=== PATIENT | female | born 1950 | race Caucasian/White ===

== ENCOUNTER 2019-09-28 05:32 | Outpatient (CLI) | payer MEDICARE ==
[~2019-09-28] VITALS: Ht 157 cm; Wt 85.4 kg
[~2019-09-28 05:32] MED LIST: CEFU250T11; LVT.025T PO
[2019-09-28] MEDS ORDERED: LEVO25TA5 PO (13:38)
[2019-09-28] MEDS ORDERED: FAMO20TA3 PO (13:38)
[2019-09-28] MEDS ORDERED: DRON400T2 PO (13:38)
== END 2019-09-28 13:43 | disposition home or self-care (01) ==
LOC: PREOP 05:32
PROVIDERS: ATTEND Surgery
DX: Z01.818 Encounter for other preprocedural examination (principal)

== ENCOUNTER → 2019-10-11 | Outpatient (CLI) | payer MEDICARE, OTHER ==
[~2019-10-11] MED LIST changes: +DRON400T2 PO; +FAMO20TA3 PO; +LEVO25TA5 PO; +PANT40TA2 PO
--- NOTE | 2019-10-12 13:04 | Diagnostic Imaging Report ---
INDICATION: Routine screening. COMPARISON: 10/05/2018 and 10/03/2017. TECHNIQUE: 2D and 3D bilateral screening mammography was performed with CAD. FINDINGS: Both breasts remain heterogeneously dense, limiting the sensitivity of mammography. Benign calcifications are scattered throughout both breasts. The parenchymal pattern is stable. No mass or malignant appearing microcalcifications are seen. The axillae are unremarkable. IMPRESSION: No mammographic features suspicious for malignancy are identified. ACR BI-RADS Category 2: Benign findings. Result letter will be mailed to the patient. Note: At least 10% of breast cancer is not imaged by mammography. Dictated by: Dictated on workstation # [id number]
== END ==
LOC: RAD 11:07
PROVIDERS: ATTEND Family Medicine
DX: Z12.31 Encounter for screening mammogram for malignant neoplasm of breast (principal)
CPT/HCPCS: 77067

== ENCOUNTER 2020-02-08 11:32 | Outpatient (RCR) | payer MEDICARE | END 2020-05-08 | disposition home or self-care (01) | LOC: CARD 11:32 | PROVIDERS: ATTEND Internal Medicine Interventional Cardiology | DX: R06.02 Shortness of breath (principal); R00.1 Bradycardia, unspecified | CPT/HCPCS: 93306 ==

== ENCOUNTER → 2020-04-14 | Outpatient (CLI) | payer MEDICARE ==
[~2020-04-14] MED LIST changes: +CATHETER FLUSH 10 ML SYR IV PRN; +HOLD METFORMIN - RECEIVED CONTRAST 20 ML VIAL IV SCH; +IOHEXOL 350 MG/ML 100 ML (OMNIPAQUE 350) VIAL IV ONE; +NS 100 ML (IVPB) BAG IV ONE
[2020-04-14 11:09] LABS: BUN/CREATININE RATIO 20; CREATININE SERUM 0.76 MG/DL (0.60-1.30); GFR ESTIMATED > 60
--- NOTE | 2020-04-14 13:01 | Diagnostic Imaging Report ---
PROCEDURE: CT chest with contrast only. TECHNIQUE: Multiple contiguous axial images were obtained through the chest after administration of intravenous contrast. Auto Exposure Controls were utilized during the CT exam to meet ALARA standards for radiation dose reduction. DATE: April 14, 2020. COMPARISON: None. INDICATION: 69-year-old female, history of lung cancer status post surgery. FINDINGS: The patient is status post right lobectomy. There are sutures or calcifications along the right pleural margin with slight to mild right pleural thickening. There is no sizable pleural fluid. There is no gas in the right pleural space. There is a 4 mm noncalcified left upper lobe pulmonary nodule on axial image 23. There is no additional identified pulmonary nodule. There is no lung mass. There is no additional focal airspace consolidation. There is no pneumothorax. The airways are patent on the left. The trachea is unremarkable in caliber. There is no identified pulmonary embolus. The main pulmonary artery diameter is normal in caliber. There is mediastinal shift to the right relating to the pneumonectomy. There are atherosclerotic calcifications. There is no identified abnormally enlarged mediastinal, hilar, or axillary lymph node which meets CT size criteria for adenopathy. There is a low-attenuation right thyroid nodule on axial image 12 which measures 9 mm in size. The patient is status post cholecystectomy. Additional evaluation of the imaged portions of the upper abdomen is unremarkable. There are multilevel degenerative changes of the spine. There are chronic appearing right posterior rib deformities. There is no identified bone lesion concerning for metastatic disease. There is no otherwise noted acute bony abnormality. IMPRESSION: CT CHEST. 1. Status post right pneumonectomy. 2. 4 mm noncalcified nodule in the left upper lobe. Recommend comparison with prior CT imaging to assess for potential stability. If comparison imaging could not be obtained, followup CT chest in 3-6 months is recommended. Dictated by: Dictated on workstation # [id number]
== END ==
LOC: RT 10:37
PROVIDERS: ATTEND Nurse Practitioner Family
DX: C34.90 Malignant neoplasm of unspecified part of unspecified bronchus or lung (principal); J98.4 Other disorders of lung; L90.5 Scar conditions and fibrosis of skin; F17.211 Nicotine dependence, cigarettes, in remission; Z98.890 Other specified postprocedural states; Z90.2 Acquired absence of lung [part of]; Z90.49 Acquired absence of other specified parts of digestive tract
CPT/HCPCS: 36415; 71260; 82565; 84520

== ENCOUNTER → 2020-04-24 | Outpatient (CLI) | payer MEDICARE ==
[~2020-04-24] MED LIST changes: -CATHETER FLUSH 10 ML SYR IV PRN; -HOLD METFORMIN - RECEIVED CONTRAST 20 ML VIAL IV SCH; -IOHEXOL 350 MG/ML 100 ML (OMNIPAQUE 350) VIAL IV ONE; -NS 100 ML (IVPB) BAG IV ONE; +RT-ALBUTEROL SULF 2.5 MG/3 ML PRE-MIX VIAL INH ONE
[2020-04-24 10:41] LABS: ABG BASE EXCESS 3.5 MMOL/L (-2.5-2.5); ABG OXYGEN SATURATION 96 % (94-100); ABG PCO2 45 MMHG (35-45); ABG PH 7.41 (7.37-7.43); ABG PO2 82 MMHG (79-93); ABG TCO2 29.3 MMOL/L (21.0-31.0)
[2020-04-24 10:44] LABS: ALLENS TEST YES-POS; INSPIRED O2 ROOM AIR; PATIENT TEMP 36.7; VENTILATOR NO
== END ==
LOC: RT 10:10
PROVIDERS: ATTEND Nurse Practitioner Family
DX: C34.90 Malignant neoplasm of unspecified part of unspecified bronchus or lung (principal); L90.5 Scar conditions and fibrosis of skin; J98.4 Other disorders of lung; R91.8 Other nonspecific abnormal finding of lung field; F17.211 Nicotine dependence, cigarettes, in remission
CPT/HCPCS: 36600; 82805; 94060; 94726; 94729

== ENCOUNTER 2020-05-09 08:00 | Outpatient (RCR) | payer MEDICARE ==
[~2020-05-09 08:00] MED LIST changes: -RT-ALBUTEROL SULF 2.5 MG/3 ML PRE-MIX VIAL INH ONE
== END 2020-08-07 ==
LOC: CARD 08:00
PROVIDERS: ATTEND Internal Medicine Interventional Cardiology
DX: R06.02 Shortness of breath (principal)

== ENCOUNTER → 2020-07-21 | Outpatient (CLI) | payer MEDICARE ==
[~2020-07-21] MED LIST changes: +CATHETER FLUSH 10 ML SYR IV PRN; +HOLD METFORMIN - RECEIVED CONTRAST 20 ML VIAL IV SCH; +IOHEXOL 350 MG/ML 100 ML (OMNIPAQUE 350) VIAL IV ONE
[2020-07-21 09:53] LABS: CREATININE SERUM 0.72 MG/DL (0.60-1.30); GFR ESTIMATED > 60
[2020-07-21 09:54] LABS: BUN/CREATININE RATIO 28
--- NOTE | 2020-07-21 12:44 | Diagnostic Imaging Report ---
PROCEDURE: CT chest with contrast only. TECHNIQUE: Multiple contiguous axial images were obtained through the chest after administration of intravenous contrast. Auto Exposure Controls were utilized during the CT exam to meet ALARA standards for radiation dose reduction. INDICATION: Shortness of breath The previous CT chest exam of 04/14/2020 noted postsurgical changes consistent with right pneumonectomy. There was no acute abnormality identified. On this exam, the postsurgical changes are again visualized. The overall appearance of the right thorax does not seem to have changed significantly since the prior exam. The heart and mediastinum remained shifted to the right. The heart is stable in size when compared to the prior study. The aorta is not abnormally dilated and there is no sign of a dissection. There is no defect within the pulmonary arteries to indicate a pulmonary embolus either. The left lung is generally clear. The 4 mm nodule in the left upper lung seen on the prior study is again evident and no different (image 25 of 147). The 9 mm low density nodule in the right lobe of the thyroid seen previously is also unchanged. There is no mediastinal or hilar adenopathy. There is no obvious breast mass. There now appears to be a loop recorder device in the lower thorax on the left. The images through the upper abdomen failed to show any sign of an acute abnormality. The bone windows are unremarkable for a fracture or for a destructive lesion. IMPRESSION: 1. The postsurgical changes involving the right thorax seen previously are again evident and no different. There is no acute cardiopulmonary abnormality appreciated. 2. The 4 mm nodule in the left upper lung seen previously appears stable. Most likely this is a benign process. 3. The low density nodule in the right lobe of the thyroid noted on prior study is also unchanged. I suspect that this is a benign process as well but ultrasound would be recommended to better characterize this finding. 4. There has been interval insertion of a loop recorder device on the left. Dictated by: Dictated on workstation # [id number]
== END ==
LOC: RAD 09:12
PROVIDERS: ATTEND Nurse Practitioner Family
DX: J98.4 Other disorders of lung (principal); R91.8 Other nonspecific abnormal finding of lung field; R06.02 Shortness of breath; Z98.890 Other specified postprocedural states
CPT/HCPCS: 36415; 71260; 82565; 84520

== ENCOUNTER → 2020-09-20 | Outpatient (CLI) | payer MEDICARE ==
[~2020-09-20] MED LIST changes: -CATHETER FLUSH 10 ML SYR IV PRN; -HOLD METFORMIN - RECEIVED CONTRAST 20 ML VIAL IV SCH; -IOHEXOL 350 MG/ML 100 ML (OMNIPAQUE 350) VIAL IV ONE
== END ==
LOC: LABNPT 07:06
PROVIDERS: ATTEND Internal Medicine Critical Care Medicine
DX: Z01.89 Encounter for other specified special examinations (principal); Z53.9 Procedure and treatment not carried out, unspecified reason

== ENCOUNTER → 2020-09-22 | Outpatient (CLI) | payer MEDICARE | LOC: LABNPT 08:59 | PROVIDERS: ATTEND Family Medicine | DX: Z01.812 Encounter for preprocedural laboratory examination (principal); Z20.828 Contact with and (suspected) exposure to other viral communicable diseases | CPT/HCPCS: 87635 ==

== ENCOUNTER 2020-09-25 19:06 | Outpatient (CLI) | payer MEDICARE | END 2020-09-26 07:05 | disposition home or self-care (01) | LOC: SLEEP 19:06 | PROVIDERS: ATTEND Internal Medicine Critical Care Medicine | DX: G47.33 Obstructive sleep apnea (adult) (pediatric) (principal); I48.91 Unspecified atrial fibrillation | CPT/HCPCS: 95811 ==

== ENCOUNTER 2020-11-08 05:40 | Outpatient (RCR) | payer MEDICARE ==
[~2020-11-08] VITALS: Ht 157.5 cm; Wt 93.6 kg
[~2020-11-08 05:40] MED LIST changes: +LEVO112T55 PO; +PANT40TA52 PO; +RIVA20TA PO
== END 2020-11-08 14:03 | disposition home or self-care (01) ==
LOC: PREOP 05:40
PROVIDERS: ATTEND Specialist
DX: Z01.812 Encounter for preprocedural laboratory examination (principal); H25.9 Unspecified age-related cataract; Z20.822 Contact with and (suspected) exposure to COVID-19
CPT/HCPCS: 87635

== ENCOUNTER 2020-11-10 07:49 | Day surgery (SDC) | payer MEDICARE ==
[~2020-11-10] VITALS: Ht 157.5 cm; Wt 93.6 kg
[2020-11-10] MEDS ORDERED: MIDAZOLAM 2 MG/2 ML (VERSED) VIAL ONE (07:55)
[2020-11-10 08:00] VITALS: BP 117/94
[2020-11-10] MEDS ORDERED: TIMOLOL MALEATE 0.5% 5 ML (TIMOPTIC) BTL OU PRN (08:15)
[2020-11-10] MEDS ORDERED: LIDOCAINE PF 1% 2 ML VIAL IR PRN (08:15)
[2020-11-10] MEDS ORDERED: MOXIFLOXACIN OPHTH SOLN 5 MG/ML 0.3 ML SYRINGE OP ONE (08:15)
[2020-11-10] MEDS ORDERED: POVIDONE (BETADINE) OPHTH SOLN 5% 30 ML OP ONE (08:15)
[2020-11-10] MEDS: TETRACAINE 0.5% OPHTH SOLN 4 ML BTL (SINGLE DOSE ONLY) OU PRN ×4 (08:24→08:42)
[2020-11-10] MEDS: TROPICAMIDE 1% OPH SOLN (MYDRIACYL) 15 ML BTL OP SCH ×3 (08:31→08:42)
[2020-11-10] MEDS: PHENYLEPHRINE 10% OPHTH (NEO-SYN) 5 ML BTL OU SCH ×3 (08:31→08:42)
--- NOTE | 2020-11-10 08:56 | Ophthalmologist Pre-Op Note ---
Pre-Operative Progress Note H&P Reviewed The H&P was reviewed, patient examined and no changes noted. Date H&P Reviewed: Nov 10, 2020 Time H&P Reviewed: 08:56 Pre-Op Dx Cataract, Right Eye KALIA KEY MD Nov 10, 2020 08:56
--- NOTE | 2020-11-10 09:23 | Ophthalmology Operative Report ---
Cataract removal/placement IOL PREOPERATIVE DIAGNOSIS: Cataract Right Eye POSTOPERATIVE DIAGNOSIS: Cataract Right Eye PROCEDURE: Cataract removal and placement of posterior chamber implant, right eye SURGEON: Bryan Key ANESTHESIA: Topical with sedation COMPLICATIONS: None ESTIMATED BLOOD LOSS: Minimal DESCRIPTION OF PROCEDURE: After proper informed consent was obtained, the patient, a 70 female, was taken to the Operating Room and the right eye was anesthetized with tetracaine. The right eye was then prepped and draped in the usual manner. A wire lid speculum was placed. A paracentesis was made at the left hand position. Preservative free lidocaine was injected into the anterior chamber followed by viscoelastic. A clear corneal incision was made in the temporal position. A capsulorrhexis was preformed and the central nuclear and cortical material were removed. The posterior capsule was polished and Billy 19.5 AU00T0 IOL was placed into the capsular bag. The residual viscoelastic was aspirated and balanced saline solution was injected into the anterior chamber. Moxifloxacin was injected into the anterior chamber. The wound was checked and found to be water tight. The patient tolerated the procedure well without complications. BRYAN KEY MD Nov 10, 2020 09:23
[2020-11-10] MEDS ORDERED: acetaZOLAMIDE ER 500 MG CAP (DIAMOX SEQUELS) PO ONE (09:30)
[2020-11-10 09:35] VITALS: BP 112/61
--- NOTE | 2020-11-10 11:06 | Anesthesia-General Post-Op ---
MAC Patient Condition Mental Status/LOC: Same as Preop Cardiovascular: Satisfactory Nausea/Vomiting: Absent Respiratory: Satisfactory Pain: Controlled Complications: Absent Post Op Complications Complications None Follow Up Care/Instructions Patient Instructions None needed. Anesthesiology Discharge Order Discharge Order Patient is doing well, no complaints, stable vital signs, no apparent adverse anesthesia problems. No complications reported per nursing. CARLY PORTILLO CRNA Nov 10, 2020 11:06
== END 2020-11-10 09:35 | disposition home or self-care (01) ==
LOC: SDC 07:49
PROVIDERS: ATTEND Specialist
DX: H25.11 Age-related nuclear cataract, right eye (principal); I48.91 Unspecified atrial fibrillation; K21.9 Gastro-esophageal reflux disease without esophagitis; E03.9 Hypothyroidism, unspecified; Z79.899 Other long term (current) drug therapy; Z88.0 Allergy status to penicillin; Z80.3 Family history of malignant neoplasm of breast
CPT/HCPCS: 66984; V2632

== ENCOUNTER → 2021-01-05 | Outpatient (CLI) | payer MEDICARE ==
[~2021-01-05] MED LIST changes: +CATHETER FLUSH 10 ML SYR IV PRN; +HOLD METFORMIN - RECEIVED CONTRAST 20 ML VIAL IV SCH; +IOHEXOL 350 MG/ML 100 ML (OMNIPAQUE 350) VIAL IV ONE; +NS 100 ML (IVPB) BAG IV ONE
[2021-01-05 11:50] LABS: BUN/CREATININE RATIO 16; CREATININE SERUM 0.77 MG/DL (0.60-1.30); GFR ESTIMATED > 60
--- NOTE | 2021-01-05 12:56 | Diagnostic Imaging Report ---
EXAMINATION: CT Chest with intravenous contrast. TECHNIQUE: Multiple contiguous axial images were obtained through the chest after the uneventful administration of intravenous contrast. All CT scans use one or more of the following dose optimizing techniques: automated exposure control, MA and/or KvP adjustment based on a patient size and exam type, or iterative reconstruction. HISTORY: Lung cancer. COMPARISON: 07/21/2020. FINDINGS: There is no edema or pneumonia. No pleural effusion. No pneumothorax. No suspicious nodules. There has been a right pneumonectomy. There is no axillary or supraclavicular lymphadenopathy. There is no mediastinal lymphadenopathy. There is calcified soft tissue in the hemithorax, likely representing postsurgical fibrosis. Heart size is normal. There are no coronary artery calcifications. No pericardial effusion. Aorta is normal in caliber. Limited views of the upper abdomen show mild right hydronephrosis with transition at the ureteropelvic junction, similar to prior exam. There are no suspicious osseous lesions. IMPRESSION: 1. Postsurgical changes of right pneumonectomy without local recurrence or metastatic disease. 2. Findings of a right ureteropelvic junction obstruction in the right kidney with mild right hydronephrosis, unchanged. Dictated by: Dictated on workstation # [id number]
== END ==
LOC: RAD 11:05
PROVIDERS: ATTEND Nurse Practitioner Family
DX: C34.90 Malignant neoplasm of unspecified part of unspecified bronchus or lung (principal); N13.0 Hydronephrosis with ureteropelvic junction obstruction
CPT/HCPCS: 36415; 71260; 82565; 84520

== ENCOUNTER → 2021-02-06 | Outpatient (CLI) | payer MEDICARE ==
[~2021-02-06] MED LIST changes: -CATHETER FLUSH 10 ML SYR IV PRN; -DRON400T2 PO; +DRON400T6 PO; -HOLD METFORMIN - RECEIVED CONTRAST 20 ML VIAL IV SCH; -IOHEXOL 350 MG/ML 100 ML (OMNIPAQUE 350) VIAL IV ONE; -NS 100 ML (IVPB) BAG IV ONE
== END ==
LOC: CARD 10:30
PROVIDERS: ATTEND Internal Medicine Cardiovascular Disease
DX: I10 Essential (primary) hypertension (principal)
CPT/HCPCS: 93306

== ENCOUNTER 2021-03-06 09:50 | Outpatient (RCR) | payer MEDICARE ==
[2021-02-01 14:07] VITALS: BP 122/68
[~2021-03-06] VITALS: Ht 157.5 cm; Wt 92.3 kg
== END 2021-05-02 | disposition home or self-care (01) ==
LOC: PULM 09:50
PROVIDERS: ATTEND Nurse Practitioner Family
DX: J98.4 Other disorders of lung (principal)
CPT/HCPCS: 99211

== ENCOUNTER → 2021-04-03 | Outpatient (CLI) | payer MEDICARE ==
--- NOTE | 2021-04-03 12:49 | Diagnostic Imaging Report ---
INDICATION: Routine screening. COMPARISON: 10/11/2019 and 10/05/2018. TECHNIQUE: 2D and 3D bilateral screening mammography was performed with CAD. FINDINGS: Both breasts are heterogeneously dense, limiting the sensitivity of mammography. There are scattered benign calcifications throughout both breasts. The overall parenchymal pattern is stable. No mass or malignant appearing microcalcifications are seen. The axillae are unremarkable. IMPRESSION: No mammographic features suspicious for malignancy are identified. ACR BI-RADS Category 2: Benign findings. Result letter will be mailed to the patient. Note: At least 10% of breast cancer is not imaged by mammography. Dictated by: Dictated on workstation # [id number]
== END ==
LOC: RAD 10:30
PROVIDERS: ATTEND Nurse Practitioner Family
DX: Z12.31 Encounter for screening mammogram for malignant neoplasm of breast (principal)
CPT/HCPCS: 77063; 77067

== ENCOUNTER → 2021-04-11 | Outpatient (RCR) | payer MEDICARE | END | disposition home or self-care (01) | LOC: CR3 03-12 15:08 | PROVIDERS: ATTEND Family Medicine | DX: Z29.8 Encounter for other specified prophylactic measures (principal) ==

== ENCOUNTER 2021-05-11 13:50 | Outpatient (RCR) | payer MEDICARE ==
[2021-05-12] MEDS ORDERED: METO-333 PO (11:02)
[2021-05-12] MEDS ORDERED: HYDR25TA4 PO (11:02)
[2021-05-12] MEDS ORDERED: ACET-2422 PO (11:02)
[2021-05-12] MEDS ORDERED: FLEC50TA PO (11:02)
== END 2021-05-16 | disposition home or self-care (01) ==
LOC: CR3 13:50
PROVIDERS: ATTEND Family Medicine
DX: Z29.8 Encounter for other specified prophylactic measures (principal)

== ENCOUNTER 2021-05-11 17:58 | Observation (INO) | payer MEDICARE ==
[~2021-05-11] VITALS: Ht 157 cm; Wt 89.0 kg
--- NOTE | 2021-05-11 18:30 | ED Cardiac General ---
History of Present Illness General Chief Complaint: Cardiac/General Problems Stated Complaint: HEART MONITOR PROBLEM Nursing Triage Note: Pt has implanted monitor and external heart monitor placed by . Pt received call from cardiology office today stating her heart rate was low and she should be seen in ED. Source: patient History of Present Illness Date Seen by Provider: May 11, 2021 Time Seen by Provider: 18:10 Initial Comments PT ARRIVES VIA POV FROM HOME STATES THE LINOLEUM MECHANIC FROM DR. PIKE'S OFFICE AT CALLED HER TODAY, AND TOLD HER SHE NEEDED TO GO TO ER BECAUSE HER HEART MONITOR WAS SHOWING THAT HER HEART RATE IS TOO LOW. PT HAS CHRONIC ATRIAL FIBRILLATION, AND HAS A LOOP RECORDER IN PLACE WAS SEEN BY DR. PIKE LAST WEEK AND HAD AN EXTERNAL HEART MONITOR PLACED AT THAT TIME PT ALSO WAS STARTED ON FLECANIDE AND ANOTHER MEDICATION--? METOPROLOL 25 MG? SHE HAD BEEN ON MULTAQ AND THIS WAS STOPPED LAST WEEK. PT DENIES ANY SYMPTOMS NO CHEST PAIN NO DIZZINESS NO WEAKNESS NO SYNCOPE NO INCREASE IN CHRONIC SHORTNESS OF BREATH AND ORTHOPNEA ( PT HAS HAD PREVIOUS RIGHT PNEUMONECTOMY YEARS AGO FOR CANCER) NO INCREASE IN CHRONIC LEG SWELLING NO COUGH OR RECENT ILLNESS NO FEVER/SWEATS/CHILLS PT HAS HAD BOTH MODERNA COVID-19 VACCINES--LAST ONE IN DECEMBER PCP: DR. SANTOS CHIEF ENGINEER RESEARCH: DR. VANG, ALSO SEES DR. PIKE AT Allergies and Home Medications Allergies Coded Allergies: Penicillins (Verified Allergy, Mild, RASH, 09/28/19) Home Medications Dronedarone HCl 400 Mg Tablet, 400 MG PO BID, (Reported) Levothyroxine Sodium 112 Mcg Tablet, 112 MCG PO DAILY, (Reported) Pantoprazole Sodium 40 Mg Tablet.dr, 40 MG PO DAILY, (Reported) Rivaroxaban 20 Mg Tablet, 20 MG PO DAILY, (Reported) Review of Systems Review of Systems Constitutional: no symptoms reported; No diaphoresis, No dizziness Respiratory: See HPI Cardiovascular: See HPI; Denies Chest Pain, Denies Lightheadedness, Denies Palpitations, Denies Syncope Gastrointestinal: No Symptoms Reported Genitourinary: No Symptoms Reported Musculoskeletal: no symptoms reported Skin: no symptoms reported Psychiatric/Neurological: No Symptoms Reported Endocrine: No Symptoms Reported Hematologic/Lymphatic: No Symptoms Reported Past [id number]-Ynoeag-Kfntsc Hx Patient Social History Tobacco Use?: No Substance use?: No Alcohol Use?: No Pt feels they are or have been: No Immunizations Up To Date Tetanus Booster (TDap): Unknown Second COVID19 Vaccination Gurdeep: DECEMBER 2020 COVID19 Vaccine [employer] Enforcement Agent: JOSSELINE Seasonal Allergies Seasonal Allergies: No Past Medical History Surgery/Hospitalization HX: REMOVAL OF RIGHT LUNG 20 YEARS AGO, PREVIOUS HX CANCER, LOOP RECORDER Surgeries: Yes (RIGHT LUNG REMOVED) Cardiac, Gallbladder, Pneumonectomy Respiratory: Yes (RIGHT PNUEMONECTOMY FOR CANCER; CHRONIC DYSPNEA/ORTHOPNEA; ) Sleep Apnea Currently Using BIPAP: Yes Cardiac: Yes Atrial Fibrillation, Irregular Heartbeat Neurological: No Female Reproductive Disorders: Denies Sexually Transmitted Disease: No HIV/AIDS: No Genitourinary: No Gastrointestinal: Yes Gastroesophageal Reflux Musculoskeletal: Yes Arthritis Endocrine: Yes Hypothyroidsim HEENT: Yes (READING GLASSES) Loss of Vision: Denies Hearing Impairment: Denies Cancer: Yes Lung Did You Recieve Any Treatments: Yes What Type of Treatment Did You: Surgical Intervention RIGHT PNEUMONECTOMY Psychosocial: No Integumentary: No Blood Disorders: No Adverse Reaction/Blood Tranf: No (N/A) Physical Exam Vital Signs Vital Signs - First Documented 05/11/21 18:15 Temp 36.5 Pulse 47 Resp 18 B/P (MAP) 139/112 (121) Pulse Ox 95 O2 Delivery Room Air Capillary Refill : Less Than 3 Seconds Height, Weight, BMI Height: 5'2.00" Weight: 203lbs. 8.0oz. [id number]; 36.00 BMI Method:Stated General Appearance: Other (MILDLY DYSPNEIC--STATES IS NORMAL FOR HER, IS ORTHOPNEA) Respiratory: Other (ABSENT LUNG SOUNDS ON RIGHT; LEFT LUNG SOUNDS ARE CLEAR) Cardiovascular: No JVD, No Murmur, Normal Peripheral Pulses, Bradycardia, Irregularly Irregular Gastrointestinal: Non Tender, Soft Extremity: Non Tender, Pedal Edema (1+ BILATERALLY WITH CHRONIC VENOUS STASIS CHANGES TO BILATERAL LOWER LEGS. ) Neurologic/Psychiatric: Alert, Oriented x3, No Motor/Sensory Deficits, Normal Mood/Affect, director systems II-XII Norm as Tested Skin: Normal Color, Warm/Dry Progress/Results/Core Measures Results/Orders Lab Results Laboratory Tests Test 05/11/21 18:28 Range/Units White Blood Count 7.9 4.3-11.0 10^3/uL Red Blood Count 4.19 3.80-5.11 10^6/uL Hemoglobin 13.2 11.5-16.0 g/dL Hematocrit 42 35-52 % Mean Corpuscular Volume 101 H 80-99 fL Mean Corpuscular Hemoglobin 32 25-34 pg Mean Corpuscular Hemoglobin Concent 31 L 32-36 g/dL Red Cell Distribution Width 12.5 10.0-14.5 % Platelet Count 270 130-400 10^3/uL Mean Platelet Volume 9.1 9.0-12.2 fL Immature Granulocyte % (Auto) 0 % Neutrophils (%) (Auto) 54 42-75 % Lymphocytes (%) (Auto) 37 12-44 % Monocytes (%) (Auto) 6 0-12 % Eosinophils (%) (Auto) 2 0-10 % Basophils (%) (Auto) 1 0-10 % Neutrophils # (Auto) 4.3 1.8-7.8 10^3/uL Lymphocytes # (Auto) 2.9 1.0-4.0 10^3/uL Monocytes # (Auto) 0.5 0.0-1.0 10^3/uL Eosinophils # (Auto) 0.2 0.0-0.3 10^3/uL Basophils # (Auto) 0.0 0.0-0.1 10^3/uL Immature Granulocyte # (Auto) 0.0 0.0-0.1 10^3/uL My Orders Orders - DILCIA PRABHAKAR DO Ed Iv/Invasive Line Start (05/11/21 18:19) Ekg Tracing (05/11/21 18:19) Monitor-Rhythm Ecg Trace Only (05/11/21 18:19) Chest 1 View, Ap/Pa Only (05/11/21 18:19) BNP (05/11/21 18:19) Cbc With Automated Diff (05/11/21 18:19) Comprehensive Metabolic Panel (05/11/21 18:19) Magnesium (05/11/21 18:19) Protime With Inr (05/11/21 18:19) Partial Thromboplastin Time (05/11/21 18:19) Thyroid Analyzer (05/11/21 18:19) Troponin I (05/11/21 18:19) Ekg Tracing (05/11/21 18:33) Vital Signs/I&O 8/6/21 18:15 Temp 36.5 Pulse 47 Resp 18 B/P (MAP) 139/112 (121) Pulse Ox 95 O2 Delivery Room Air Blood Pressure Mean: 121 Progress Progress Note : Progress Note BP 140'S/70'S O2 SATS 97% ON ROOM AIR Initial ECG Impression Date: May 11, 2021 Initial ECG Impression Time: 18:23 Initial ECG Rate: 64 Comment MUCH ARTIFACT DUE TO PATIENT MOVEMENT--IRREGULAR RHYTHM, ? OCCASIONAL P WAVES ? EKG : EKG Time: 18:29 Rate: 43 Comment MUCH ARTIFACT DUE TO PATIENT MOVEMENT--IRREGULAR RATE, ? OCCASIONAL P-WAVES ? Diagnostic Imaging Comments CXR--PER RADIOLOGIST REPORT AT 1852 INDINGS: There is complete opacification of the right hemithorax. This is unchanged compared to the exam dated 06/08/2020. Left lung is clear. There is no pneumothorax. IMPRESSION: Postop changes from right pneumonectomy. No acute abnormality seen and no change compared to 06/08/2020. Reviewed: Reviewed by Me Departure Departure-Patient Inst. Referrals: ABRAHAM SANTOS MD (PCP/Family) Primary Care Physician DILCIA PRABHAKAR DO May 11, 2021 18:30
[2021-05-11 18:37] LABS: BASOPHILS % (AUTO) 1 % (0-10); EOSINOPHILS # (AUTO) 0.2 10^3/uL (0.0-0.3); EOSINOPHILS % (AUTO) 2 % (0-10); HEMATOCRIT 42 % (35-52); HEMOGLOBIN 13.2 g/dL (11.5-16.0); LYMPHOCYTES # (AUTO) 2.9 10^3/uL (1.0-4.0); LYMPHOCYTES % (AUTO) 37 % (12-44); MEAN CORPUSCULAR HEMOGLOBIN 32 pg (25-34); MEAN CORPUSCULAR HGB CONC 31 g/dL (32-36); MEAN CORPUSCULAR VOLUME 101 fL (80-99); MEAN PLATELET VOLUME 9.1 fL (9.0-12.2); MONOCYTES # (AUTO) 0.5 10^3/uL (0.0-1.0); MONOCYTES % (AUTO) 6 % (0-12); NEUTROPHILS # (AUTO) 4.3 10^3/uL (1.8-7.8); NEUTROPHILS % (AUTO) 54 % (42-75); PLATELET COUNT 270 10^3/uL (130-400); WHITE BLOOD COUNT 7.9 10^3/uL (4.3-11.0)
--- NOTE | 2021-05-11 18:49 | Diagnostic Imaging Report ---
INDICATION: Bradycardia, lung cancer. FINDINGS: There is complete opacification of the right hemithorax. This is unchanged compared to the exam dated 06/08/2020. Left lung is clear. There is no pneumothorax. IMPRESSION: Postop changes from right pneumonectomy. No acute abnormality seen and no change compared to 06/08/2020. Dictated by: Dictated on workstation # [id number]
[2021-05-11 18:54] LABS: INR 1.8 (0.8-1.4); PROTHROMBIN TIME PATIENT 20.9 SEC (12.2-14.7)
[2021-05-11 19:22] LABS: ALANINE AMINOTRANSFERASE 26 U/L (0-55); ALBUMIN 3.8 GM/DL (3.2-4.5); ALKALINE PHOSPHATASE 72 U/L (40-136); BILIRUBIN,TOTAL 0.6 MG/DL (0.1-1.0); BUN/CREATININE RATIO 20; CALCIUM 10.6 MG/DL (8.5-10.1); CARBON DIOXIDE 31 MMOL/L (21-32); CHLORIDE 103 MMOL/L (98-107); CREATININE SERUM 0.81 MG/DL (0.60-1.30); GFR ESTIMATED 70; GLUCOSE 84 MG/DL (70-105); MAGNESIUM 1.8 MG/DL (1.6-2.4); POTASSIUM 3.6 MMOL/L (3.6-5.0); SODIUM 141 MMOL/L (135-145); TOTAL PROTEIN 7.2 GM/DL (6.4-8.2)
[2021-05-11 19:28] LABS: TSH (THYROID ANALYZER) 4.28 UIU/ML (0.35-4.94)
[2021-05-11 20:57] VITALS: BP 122/67
[2021-05-11] MEDS ORDERED: CATHETER FLUSH 10 ML SYR IV PRN (21:30)
[2021-05-11] MEDS: CATHETER FLUSH 10 ML SYR IV SCH (22:26)
[2021-05-11 23:45] VITALS: BP 118/73
[2021-05-12 03:20] VITALS: BP 92/47
[2021-05-12 03:27] VITALS: BP 95/63
[2021-05-12 03:39] LABS: BASOPHILS # (AUTO) 0.1 10^3/uL (0.0-0.1); BASOPHILS % (AUTO) 1 % (0-10); EOSINOPHILS # (AUTO) 0.2 10^3/uL (0.0-0.3); EOSINOPHILS % (AUTO) 3 % (0-10); HEMATOCRIT 39 % (35-52); HEMOGLOBIN 11.8 g/dL (11.5-16.0); LYMPHOCYTES # (AUTO) 2.4 10^3/uL (1.0-4.0); LYMPHOCYTES % (AUTO) 33 % (12-44); MEAN CORPUSCULAR HEMOGLOBIN 31 pg (25-34); MEAN CORPUSCULAR HGB CONC 30 g/dL (32-36); MEAN CORPUSCULAR VOLUME 102 fL (80-99); MEAN PLATELET VOLUME 9.5 fL (9.0-12.2); MONOCYTES # (AUTO) 0.5 10^3/uL (0.0-1.0); MONOCYTES % (AUTO) 6 % (0-12); NEUTROPHILS # (AUTO) 4.2 10^3/uL (1.8-7.8); NEUTROPHILS % (AUTO) 57 % (42-75); PLATELET COUNT 224 10^3/uL (130-400); WHITE BLOOD COUNT 7.3 10^3/uL (4.3-11.0)
[2021-05-12 03:55] LABS: CHLORIDE 106 MMOL/L (98-107); POTASSIUM 3.5 MMOL/L (3.6-5.0); SODIUM 144 MMOL/L (135-145)
[2021-05-12 03:56] LABS: CALCIUM 10.3 MG/DL (8.5-10.1)
[2021-05-12 03:57] LABS: GLUCOSE 105 MG/DL (70-105)
[2021-05-12 03:58] LABS: CARBON DIOXIDE 28 MMOL/L (21-32)
[2021-05-12 04:01] LABS: CREATININE SERUM 0.75 MG/DL (0.60-1.30); GFR ESTIMATED 76
[2021-05-12 04:02] LABS: BUN/CREATININE RATIO 23
[2021-05-12] MEDS: CATHETER FLUSH 10 ML SYR IV SCH (05:46)
[2021-05-12 07:56] VITALS: BP 102/61
[2021-05-12] MEDS ORDERED: HYDR25TA4 PO (11:02)
[2021-05-12] MEDS ORDERED: ACET-2422 PO (11:02)
[2021-05-12] MEDS ORDERED: METO-333 PO (11:02)
[2021-05-12] MEDS ORDERED: FLEC50TA PO (11:02)
--- NOTE | 2021-05-12 11:54 | Discharge Inst-Post CATH ---
Discharge Inst-CATH/EP Problems Reviewed?: Yes Post Cardiac Cath/EP D/C Inst Follow Up/Plan Appointment with Dr. Garcia's office in 1 to 2 weeks <b>CARDIAC CATH/EP PROCEDURE DISCHARGE INSTRUCTIONS</b> ACTIVITY * Go Home directly and rest. * Limit activity of the leg (or wrist if it was used) for 7 days including aer obics, swimming, jogging, bicycling, etc. * Restrict stair-climbing for 7 days if possible, if not, climb up with your non-cath leg, then bring together on the same step. * Avoid lifting, pushing, pulling or excessive movement of the affected extremi ty for 7 days. * Customary sexual activity may be resumed after 2 days-use caution not to use a position that strains or causes pain to the affected extremity. * No driving for 24 hours. * NO SMOKING. * Avoid straining for bowel movements for 7 days. * Gentle walking on level ground is allowed. * Returning to work will depend on the type of procedure and the results. Your doctor will discuss this with you. CALL YOUR DOCTOR FOR ANY OF THE FOLLOWING: *If bleeding from the puncture site occurs- Apply gentle pressure to site with clean cloth and call your doctor or EMS. * If a knot or lump forms under the skin, increases in size, or causes pain. * If bruising appears to be worsening or moving further down your leg instead of disappearing. * Temperature above 101 F. CARE OF YOUR GROIN INCISION; * Bruising or purple discoloration of the skin near the puncture site is common. * You may shower only, no bathtub bathing for 5 days. Be careful to avoid slipping as your leg may feel stiff. * If a closure device was used on your femoral artery, please see the attached guide regarding care of the device and your leg. * Leave dressing on FOR 24 hours. CARE OF YOUR WRIST INCISION; * Bruising or purple discoloration of the skin near the puncture site is common. * You may shower. * DO NOT submerge wrist. * Leave dressing on FOR 24 hours. HAZEL GARCIA MD May 12, 2021 11:54
[2021-05-12] MEDS ORDERED: NON-FORMULARY MEDICATION 1 EA EA (Acetaminophen (Acetaminophen ER) 1,300 MG) PO PRN (12:00)
[2021-05-12] MEDS ORDERED: LEVOTHYROXINE 112 MCG (LEVOTHROID) TAB PO SCH (12:00)
--- NOTE | 2021-05-12 12:00 | Short Stay Summary ---
Discharge Summary Hospital Course Was the Problem List Reviewed?: Yes Final Diagnosis: Sinus node dysfunction, PAF Hospital Course Date of Admission: May 11, 2021 at 18:30 Admission Diagnosis : Family Physician/Provider: Abraham Maldonado MD Date of Discharge: 05/12/21 Discharge Diagnosis: [Sinus node dysfunction Paroxysmal atrial fibrillation Hypertension COPD] Hospital Course: [70-year-old lady with paroxysmal atrial fibrillation, was following with Dr. Sage then transferred to with Dr. Silva. Had external monitor in addition to loop monitor, she was called by staff and asked to go to the emergency room due to bradycardia. She denied any chest pain or shortness of breath. No palpitation, no syncope or near syncopal episode, she was noted to be severely bradycardic with a heart rate in the 30s. Monitoring her overnight showed improvement in her heart rate up to the 50s. Her beta-blockers has been on hold. 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 Sinus node dysfunction with sinus exit block, episodes of severe bradycardia, cannot tolerate beta-blockers and all calcium channel blockers which was discontinued and her heart rate has improved. May require a pacemaker on the long run. Paroxysmal atrial fibrillation, had a loop monitor implanted in April 2020, had multiple episode of paroxysmal atrial tachycardia/fibrillation and short burst of atrial flutter. Was initially on Multaq, currently receiving flecainide and tolerating it well. 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 Maintained on oxygen. COPD oxygen dependent. History of obstructive sleep apnea using BiPAP Hypothyroidism followed and managed by primary care physician History of mild to moderate pedal edema. Started on hydrochlorothiazide as an outpatient and feeling better Mild bilateral carotid stenosis. Continue to monitor] Labs and Pending Lab Test: Laboratory Tests 05/11/21 18:28: White Blood Count 7.9, Red Blood Count 4.19, Hemoglobin 13.2, Hematocrit 42, Mean Corpuscular Volume 101H, Mean Corpuscular Hemoglobin 32, Mean Corpuscular Hemoglobin Concent 31L, Red Cell Distribution Width 12.5, Platelet Count 270, Mean Platelet Volume 9.1, Immature Granulocyte % (Auto) 0, Neutrophils (%) (Auto) 54, Lymphocytes (%) (Auto) 37, Monocytes (%) (Auto) 6, Eosinophils (%) (Auto) 2, Basophils (%) (Auto) 1, Neutrophils # (Auto) 4.3, Lymphocytes # (Auto) 2.9, Monocytes # (Auto) 0.5, Eosinophils # (Auto) 0.2, Basophils # (Auto) 0.0, Immature Granulocyte # (Auto) 0.0, Prothrombin Time 20.9H, INR Comment 1.8H, Activated Partial Thromboplast Time 41H, Sodium Level 141, Potassium Level 3.6, Chloride Level 103, Carbon Dioxide Level 31, Anion Gap 7, Blood Urea Nitrogen 16, Creatinine 0.81, Estimat Glomerular Filtration Rate 70, BUN/Creatinine Ratio 20, Glucose Level 84, Calcium Level 10.6H, Corrected Calcium 10.8H, Magnesium Level 1.8, Total Bilirubin 0.6, Aspartate Amino Transf (AST/SGOT) 20, Alanine Aminotransferase (ALT/SGPT) 26, Alkaline Phosphatase 72, Troponin I < 0.028, B- Type Natriuretic Peptide 113.0H, Total Protein 7.2, Albumin 3.8, TSH Alden Testing 4.28 05/12/21 03:24: White Blood Count 7.3, Red Blood Count 3.81, Hemoglobin 11.8, Hematocrit 39, Mean Corpuscular Volume 102H, Mean Corpuscular Hemoglobin 31, Mean Corpuscular Hemoglobin Concent 30L, Red Cell Distribution Width 12.6, Platelet Count 224, Mean Platelet Volume 9.5, Immature Granulocyte % (Auto) 0, Neutrophils (%) (Auto) 57, Lymphocytes (%) (Auto) 33, Monocytes (%) (Auto) 6, Eosinophils (%) (Auto) 3, Basophils (%) (Auto) 1, Neutrophils # (Auto) 4.2, Lymphocytes # (Auto) 2.4, Monocytes # (Auto) 0.5, Eosinophils # (Auto) 0.2, Basophils # (Auto) 0.1, Immature Granulocyte # (Auto) 0.0, Sodium Level 144, Potassium Level 3.5L, Chloride Level 106, Carbon Dioxide Level 28, Anion Gap 10, Blood Urea Nitrogen 17, Creatinine 0.75, Estimat Glomerular Filtration Rate 76, BUN/Creatinine Ratio 23, Glucose Level 105, Calcium Level 10.3H, Troponin I < 0.028 Home Meds Active Reported Hydrochlorothiazide 25 Mg Tablet 25 Mg PO DAILY Acetaminophen ER (Acetaminophen) 650 Mg Tablet.er 1,300 Mg PO DAILY PRN Flecainide Acetate 50 Mg Tablet 50 Mg PO BID Pantoprazole Sodium 40 Mg Tablet.dr 40 Mg PO DAILY Xarelto (Rivaroxaban) 20 Mg Tablet 20 Mg PO DAILY Levothyroxine Sodium 112 Mcg Tablet 168 Mcg PO UD TAKES TWICE WEEKLY Assessment/Pt Instructions Patient was instructed on discontinuing metoprolol, monitor heart rate, arrange for follow-up as an outpatient in 1 to 2 weeks. Restart all other medications. Discharge Instructions Discharge Diet: No Restrictions, Low Sodium Diet Discharge Physical Examination General Appearance: Alert, Oriented X3, Cooperative HEENT: Atraumatic, PERRLA Respiratory: Clear to Auscultation, Normal Air Movement Cardiovascular: Regular Rate, Normal S1, Normal S2 Abdominal: Normal Bowel Sounds, Soft Extremities: No Clubbing, No Cyanosis Skin: No Rashes, No Breakdown Neuro: Normal Gait, Normal Speech, Strength at 5/5 X4 Ext Psych/Mental Status: Mental Status NL, Mood NL Allergies: Coded Allergies: Penicillins (Verified Allergy, Mild, RASH, 09/28/19) Copy Copies To 1: ABRAHAM MALDONADO MD Discharge Summary Date of Admission May 11, 2021 at 18:30 Date of Discharge May 12, 2021 Discharge Date: May 12, 2021 HAZEL VANG MD May 12, 2021 12:00
[2021-05-12] MEDS ORDERED: FLECAINIDE 100 MG (TAMBOCOR) TAB PO SCH (21:00)
[2021-05-13] MEDS ORDERED: RIVAROXABAN 20 MG TABLET (XARELTO) PO SCH (09:00)
[2021-05-13] MEDS ORDERED: PANTOPRAZOLE 40 MG (PROTONIX) TAB PO SCH (09:00)
--- OUTSIDE RECORDS SUMMARY | 2021-05-14 02:39 | XMS REPORT | Encounter Summary ---
Author Author [facility] Organization [facility] Address Unknown Phone Unavailable Care Team Providers Care Custom Tailor Name Role Phone Marla Maldonado MD PCP Encounter Details Care Team Description Date Type Department Rudy Ward MD [address] [place], [place] [id number] 05/03/2021 Hospital Cardiology: [facility] [address] [place] [id number] Social History Date Tobacco Use Types Packs/Day Years Used Former Smoker Smokeless Tobacco: Never Used Drinks/Week oz/Week Comments Alcohol Use Not Currently Sex Assigned at Date Recorded Not on file Date Recorded COVID-19 Exposure Response 05/03/2021 12:45 PM CDT In the last month, have you been in contact with No / Unsure someone who was confirmed or suspected to have Coronavirus / COVID-19? documented as of this encounter Medications at Time of Discharge Start Date End Date Medication Sig Dispensed Refills acetaminophen SR Take 1,300 mg 0 (ARTHRITIS PAIN RELIEF) by mouth as 650 mg tablet Needed for Pain. 05/03/2021 flecainide (TAMBOCOR) 50 Take one 180 tablet 3 mg tablet tablet by mouth twice daily. hydroCHLOROthiazide Take 25 mg by 0 (HYDRODIURIL) 25 mg mouth every tablet morning. levothyroxine (SYNTHROID) Take 168 mcg 0 112 mcg tablet by mouth twice weekly. 05/03/2021 metoprolol tartrate 25 mg Take one 180 tablet 3 tablet tablet by mouth twice daily. pantoprazole DR Take 40 mg by 0 (PROTONIX) 40 mg tablet mouth daily. rivaroxaban (XARELTO) 20 Take 20 mg by 0 mg tablet mouth daily. Take with food. documented as of this encounter Discharge Disposition Code Departure Means Destination Disposition Home Home or Self Care documented in this encounter Plan of Treatment Not on filedocumented as of this encounter Procedures Comments Procedure Name Priority Date/Time Associated Diag nosis PATIENT FROM CLINIC - Routine 05/03/2021 Atrial f ibrillation, DEVICE EVALUATION - ILR 1:22 PM CDT unspecified t ype (HCC) PROGRAM documented in this encounter Results * DEVICE EVALUATION - ILR (05/03/2021 1:22 PM CDT) Generator [employer] [facility] [employer] Generator [id number] [facility] Serial # Generator Model REVEAL LINQ [id number] [facility] # Generator -- [facility] Implnat Date EP DEVICE Pt currently follows in [facility] PATIENT NOTES [facility] with Dr. Perez's office, here for second opinion only. Pacemaker no [facility] Dependant On yes [facility] Anticoagulation EP SYSTEM MRI yes [facility] CONDITIONAL Device Type ILR [facility] Specimen Narrative Performed At [facility] Title: Normal In-Office: With Events In office full check with AF detections and programming. * This is a normal in-office diagnostic device check * Battery data was reviewed * Battery status: Good * Presenting rhythm: SR 80's with V rat e variability. * Heart Rate Histograms reviewed * Detection Parameters were evaluated Title: Non-sustained Tachycardia: AF * Stored EGMs are consistent with or guerra ggestive of non-sustained Atrial Fibrillation * Total episodes: 1170 with 0.8% burden listed, and review of available ECG shows AF with mostly brief interval s <2 minutes. Multiple events each day with V rate 60 -90's. Pt reports taking Xarelto #1332 on page 11 of the report shows fl utter, as do the other ECG's even with some artifact on the strip. Some look to show Aflutter-others show clear AF. Title: Sinus Pause * Stored EGMs are consistent with or guerra ggestive of a pause or pauses > 3 seconds * Total episodes: 3 available ECG strip s, all show under sensing of the QRS. Title: Programming Evaluation Performed * Device programmed to optimal programm ed values Spoke with Emily VARGAS about jeyson nges as known AF and prescribed Xarelto. Sensitivity from 0.035 to 0.025mV Ectopy reject from nominal to aggressiv e and AT/AF recording from all events to record episodes > 10 minutes. Should pt follow with [facility] clinic, we wi ll request a transfer of her remote monitoring. Performing Organization Address City/State/ZIP Code P alice Number [facility] documented in this encounter Visit Diagnoses Diagnosis Atrial fibrillation, unspecified type ( HCC) documented in this encounter Additional Health Concerns Assessment Noted Time PHQ-2 Depression Total Score: 0 05/03/2021 1:05 PM CDT documented as of this encounter
--- OUTSIDE RECORDS SUMMARY | 2021-05-14 02:39 | XMS REPORT | Encounter Summary ---
Author Author [facility] Organization [facility] Address Unknown Phone Unavailable Care Team Providers Care Block Layer Name Role Phone Marla Maldonado MD PCP Reason for Visit * Reason Comments New Patient Needs substance use assessm ent Records Request Dr. Antolin Mace Records Request Dr. Sage Records Request Dr. Nadeem Garcia Encounter Details Care Team Description Date Type Department Doreen Lucas RN New Patient (Needs substance use assessm ent); Records Request (Dr. Antolin Mace); Records Request (Dr. Sage); Records Request (Dr. Nadeem Garcia) 04/29/2021 Patient Profile Cardiology: [facility] [address] [place] [address] Social History Date Tobacco Use Types Packs/Day Years Used Never Assessed Sex Assigned at Date Recorded Not on file documented as of this encounter Progress Notes * Doreen Lucas RN - 04/29/2021 12:49 PM CDT Request for the following medical records for purpose of continuity of care: Has an appointment with [facility]PE on 05/03/2021 Most recent ECHO, MPI. Carotid artery US Labs Please Fax to: [facility] - [phone] Dr. Ward Attention: COURTNEY Diamond Thank you * Doreen Lucas RN - 04/29/2021 12:49 PM CDT Request for the following medical records for purpose of continuity of care: Has an appointment with [facility] on 05/03/21 Last OV note EKG tracing ECHO and MPI results ILR implant report Please Fax to: [facility] Cardiology - [phone] Dr. Ward Attention: COURTNEY Diamond Thank you * Doreen Lucas RN - 04/29/2021 12:49 PM CDT Request for the following medical records for purpose of continuity of care: Has an appointment with [facility] on 05/03/2021 EKG tracings Please Fax to: [facility] Cardiology - [phone] Dr. Ward Attention: COURTNEY Diamond Thank you documented in this encounter Plan of Treatment Not on filedocumented as of this encounter Visit Diagnoses Diagnosis Peripheral edema Edema Atrial fibrillation, unspecified type ( HCC) Dyspnea, unspecified type Malignant neoplasm of right lung, unspe cified part of lung (HCC) Chronic obstructive pulmonary disease, unspecified COPD type (HCC) Hypothyroidism, unspecified type Chest pain, unspecified type Stenosis of carotid artery, unspecified laterality Status post placement of implantable lo op recorder Other specified cardiac device in situ documented in this encounter Historical Medications * This list may reflect changes made after this encounter. Start Date End Date Medication Sig Dispensed Refills rivaroxaban (XARELTO) 20 Take 20 mg by 0 mg tablet mouth daily. Take with food. pantoprazole DR Take 40 mg by 0 (PROTONIX) 40 mg tablet mouth daily. levothyroxine (SYNTHROID) Take 168 mcg 0 112 mcg tablet by mouth twice weekly. hydroCHLOROthiazide Take 25 mg by 0 (HYDRODIURIL) 25 mg mouth every tablet morning. acetaminophen SR Take 1,300 mg 0 (ARTHRITIS PAIN RELIEF) by mouth as 650 mg tablet Needed for Pain. 05/03/2021 dronedarone (MULTAQ) 400 Take 400 mg 0 mg tablet by mouth twice daily with meals. added in this encounter
--- OUTSIDE RECORDS SUMMARY | 2021-05-14 02:39 | XMS REPORT | Encounter Summary ---
Author Author [facility] Organization [facility] Address Unknown Phone Unavailable Care Team Providers Care Textile Screen Printer Name Role Phone Marla Maldonado MD PCP Reason for Visit * Reason Onset Date Comments Records Request 04/30/2021 Encounter Details Care Team Description Date Type Department Pamela Moreno Records Request 04/30/[address] [address] Social History Date Tobacco Use Types Packs/Day Years Used Never Assessed Sex Assigned at Date Recorded Not on file documented as of this encounter Miscellaneous Notes * Telephone Encounter - Jessica Powell - 04/30/2021 2:20 PM CDT 04/30/21- Records Received from Dr Marla Maldonado have been scanned to chart and available in the OnBase button. Thank you, Jessica GUNNultrasound specialist - Cardiovascular Medicine [facility] [address] [place] [phone] * Telephone Encounter - Pamela Moreno - 04/30/2021 10:00 AM CDT 04/30/21 - Records requested per e-mail message from Urszula Brower - additional rec ords from Dr. Garcia and also PCP - Marla Maldonado /sharmaine documented in this encounter Plan of Treatment Not on filedocumented as of this encounter Visit Diagnoses Not on filedocumented in this encounter
--- OUTSIDE RECORDS SUMMARY | 2021-05-14 02:39 | XMS REPORT | Encounter Summary ---
Author Author [facility] Organization [facility] Address Unknown Phone Unavailable Care Team Providers Care Magazine Writer Name Role Phone Marla Maldonado MD PCP Reason for Visit * Reason Onset Date Comments HRM - Abnormal Results 05/11/2021 (Remote Device - Abnormal Rhythms) Encounter Details Care Team Description Date Type Department Christopher Reeves RN HRM - Abnormal Results (Remote Device - Abnormal Rhythms) 05/11/2021 Telephone Cardiology: [facility], [address] [place] [address]. [address] [place] [address] Social History Date Tobacco Use Types Packs/Day [...] / COVID-19? documented as of this encounter Miscellaneous Notes * Telephone Encounter - Christopher Reeves RN - 05/11/2021 4:52 PM CDT RC to pt to discuss biotel report for SB noted on 05/10 @2204 with rates of 33bpm lasting 2min. Pt reports she was likely reading at the time of transmission but reports "emense trouble sleeping last night". Pt states she "only slept for ab out one hour last night". Pt reports feeling well at this time. Pt denies SOA, LH, CP, ZELAYA. Pt does repo rt using a CPAP with supplemental O2 d/t only having 1 lung. Pt asked to check her HR. She reports first rate of 36bpm. Pt walked around an d reported second rate of 44 bpm. Pt reports she lives alone D/t recent medication change, pt advised NOT to take metoprolol tonight. She st ates last dose in AM. She was advised d/t bradycardia, pt to be seen in the ED for further evaluation. Pt advised NOT to drive a car at this time. Pt reports she will go to a local ED for eval and will f/up with EP clinic next week. Reviewed plan with the patient. Patient verbalized understanding and does not mills ve any further questions or concerns. No further education requested from dorothy ferrer. Patient has our contact information for future needs. * Telephone Encounter - Christopher Reeves RN - 05/11/2021 3:06 PM CDT RC to [facility]. 05/10/212203 SB rate 33bpm lasting 2 minutes, returned to SR. * Telephone Encounter - Christopher Reeves RN - 05/11/2021 3:06 PM CDT ----- Message from Geni Beach LPN sent at 05/11/2021 11:34 AM CDT ----- Regarding: MPE- abnormal EKG [facility] [place] [phone] 1. Said that she has abnormal EKG. documented in this encounter Plan of Treatment Not on filedocumented as of this encounter Visit Diagnoses Not on filedocumented in this encounter Additional Health Concerns Assessment Noted Time PHQ-2 Depression Total Score: 0 05/03/2021 1:05 PM CDT documented as of this encounter
--- OUTSIDE RECORDS SUMMARY | 2021-05-14 02:39 | XMS REPORT | Encounter Summary ---
Author Author [facility] Organization [facility] Address Unknown Phone Unavailable Care Team Providers Care Tavern Keeper Name Role Phone Marla Maldonado MD PCP Reason for Visit * Reason Comments Test/procedure 30 day MCOT online enrollme nt Encounter Details Care Team Description Date Type Department Buster Peres Test/procedure (30 day MCOT online enrol lment ) 05/03/2021 Documentation Cardiology: [facility] [address] [place] [address] Social History Date Tobacco Use [...] / COVID-19? documented as of this encounter Progress Notes * Buster Peres - 05/03/2021 4:04 PM CDT Company:[employer] ( [employer]) Type: MCOT Duration: 30 DAYS Ordering Provider: Sylvia Fischer: AF Online Enrollment Completed: Yes documented in this encounter Plan of Treatment Not on filedocumented as of this encounter Visit Diagnoses Not on filedocumented in this encounter Additional Health Concerns Assessment Noted Time PHQ-2 Depression Total Score: 0 05/03/2021 1:05 PM CDT documented as of this encounter
--- OUTSIDE RECORDS SUMMARY | 2021-05-14 02:39 | XMS REPORT | Encounter Summary ---
Author Author [facility] Organization [facility] Address Unknown Phone Unavailable Care Team Providers Care Underliner Name Role Phone Marla Maldonado MD PCP Reason for Visit * Reason Comments Atrial fibrillation AFC Encounter Details Care Team Description Date Type Department Angella Kirk BSN Atrial fibrillation (AFC) 04/20/2021 Documentation Cardiology: [facility] [address] [place] [address] Social History Date Tobacco Use Types Packs/Day Years Used Never Assessed Sex Assigned at Date Recorded Not on file documented as of this encounter Progress Notes * Angella Kirk BSN - 04/20/2021 1:06 PM CDT Afib Clinic Note: Patient Name: Michelle Mina : 1950 Referring Physician: external, Dr. Garcia Records in OnBase Onset of afib 01/29/2021 Rhythm/Rate Control Meds: Multaq (showed some improvement_ Current Anticoagulation/Antiplatelet: Xarelto (Rivaroxaban) BMI: 37.3 (will require Wt. Mgmt. consult) CHADS-VASC = HTN (1), 65-74 (1) and Female (1) STOP BANG = sleep study completed 11/2015 with recommendation of bipap unsure of patients status with bipap/cpap support Device: Yes PPM/ICD ECHO: Location: [facility] (Care Everywhere) Date: 10/15/2018 EF: 45% Left Atrium: 4.4cm Monitor: none found documented in this encounter Plan of Treatment Not on filedocumented as of this encounter Visit Diagnoses Not on filedocumented in this encounter
--- OUTSIDE RECORDS SUMMARY | 2021-05-14 02:39 | XMS REPORT | Encounter Summary ---
Author Author [facility] Organization [facility] Address Unknown Phone Unavailable Care Team Providers Care Public Address System Operator Name Role Phone Marla Maldonado MD PCP Reason for Referral * Consult, Test & Treat (Routine) Referred By Contact Referred To Contact Status Reason Specialty Diagnoses / Procedures Rudy Ward MD [address] [place] [id number] New Request Procedures REQUEST FOR CARDIOLOGY APPOINTMENT Electronically signed by Rudy Ward MD at Reason for Visit * Reason Comments Atrial fibrillation Device check today * Consult, Test & Treat (Routine) Referred By Contact Referred To Contact Status Reason Specialty Diagnoses / Procedures Nadeem Garcia MD [address] [place] [address] Pending Review Cardiology Diagnoses Chronic atrial fibrillation (HCC) Dyspnea Peripheral edema Hypertensive disorder Cardiac chest pain Carotid artery stenosis Encounter Details Care Team Description Date Type Department Rudy Ward MD [address] [place] [id number] Atrial fibrillation (Device check today) 05/03/2021 Office Visit Cardiology: [facility] [address] [place] [address], [address] [place] [address] Social History Date Tobacco Use [...] / COVID-19? documented as of this encounter Last Filed Vital Signs Reading Time Taken Comments Vital Sign 110/72 05/03/2021 1:02 PM CDT Blood Pressure 84 05/03/2021 1:02 PM CDT Pulse - - Temperature - - Respiratory Rate - - Oxygen Saturation - - Inhaled Oxygen Concentration 89.4 kg (197 lb) 05/03/2021 1:02 PM CDT Weight 157.5 cm (5' 2") 05/03/2021 1:02 PM CDT Height 36.03 05/03/2021 1:02 PM CDT Body Mass Index documented in this encounter Patient Instructions * Patient Instructions* Christopher Reeves RN - 05/03/2021 1:00 PM CDT Images from the original note were not included. Please schedule an appointment with Dr. Ward in 6 months. To schedule an appointment call [phone]. STOP taking Multaq. On Friday. 05/07/21, START flecainide 50mg twice per day. Start lopressor 25mg twice per day. We are sending you a heart monitor in the mail. Please wear this for 30 and the n send it back to us in the mail. Follow the included directions. If you skyler nue to have problems or questions, please call the clinic and we can help you. In order to provide you the best care possible we ask that you follow up as emperatriz gomez: For non-urgent questions please contact us through your [employer] account. For all medication refills please contact your pharmacy or send a request willie Pozo. For all questions that may need to be addressed urgently please call the nursing triage voicemail at [phone] Friday - Friday 8 only. Please leave a detai led message with your name, date of , and reason for your call. Please allow ~ 10 business days for the results of any testing to be reviewed. Mone blanton call our office if you have not heard from a nurse within this time frame. Flecainide acetate Oral Tablet 50 mg Uses For irregular heartbeat. Instructions This medicine may be taken with or without food. It is very important that you take the medicine at about the same time every day . It will work best if you do this. Store at room temperature in a dry place. Do not keep in the bathroom. Keep the medicine away from heat and light. It is important that you keep taking each dose of this medicine on time even if you are feeling well. If you forget to take a dose on time, take it as soon as you remember. If it is almost time for the next dose, do not take the missed dose. Return to your juliana l dosing schedule. Do not take 2 doses of this medicine at one time. Please tell your doctor and pharmacist about all the medicines you take. Include both prescription and drez-wgj-hfggsor medicines. Also tell them about any pillo mins, herbal medicines, or anything else you take for your health. If your symptoms do not improve or they worsen while on this medicine, contact y our doctor. Do not suddenly stop taking this medicine. Check with your doctor before stoppin g. It is very important that you follow your doctor's instructions for all blood te sts. It is very important that you keep all appointments for medical exams and tests while on this medicine. Do not take the medicine more than twice during 24 hours. Cautions Tell your doctor and pharmacist if you ever had an allergic reaction to a medici ne. Symptoms of an allergic reaction can include trouble breathing, skin rash, i tching, swelling, or severe dizziness. Some patients with weak hearts may have worsening of symptoms. If you notice dif ficulty breathing, weight gain, or swelling of your legs or ankles, let your doc tor know right away. Some patients taking this medicine have experienced serious side effects. Please speak with your doctor to understand the risks and benefits associated with this medicine. Do not use the medication any more than instructed. Your ability to stay alert or to react quickly may be impaired by this medicine. Do not drive or operate machinery until you know how this medicine will affect you. Please check with your doctor before drinking alcohol while on this medicine. If you drink more than a few alcoholic beverages each day, ask your doctor [facility] you should be on this medicine. Tell the doctor or pharmacist if you are , planning to be , or b reastfeeding. Ask your pharmacist if this medicine can interact with any of your other medicin es. Be sure to tell them about all the medicines you take. Please tell all your doctors and dentists that you are on this medicine before t hey provide care. Do not start or stop any other medicines without first speaking to your doctor o r pharmacist. If you have had a heart attack within the past 6 months, talk to your doctor bef ore using this medicine. Do not share this medicine with anyone who has not been prescribed this medicine . Always refill this medicine before it runs out. Side Effects The following is a list of some common side effects from this medicine. Please s peak with your doctor about what you should do if you experience these or other side effects. blurry vision dizziness lack of energy and tiredness headaches nausea shakiness weakness Call your doctor or get medical help right away if you notice any of these more serious side effects: swelling of the legs, feet, and hands fainting fast or irregular heart beats shortness of breath unusual or unexplained tiredness or weakness A few people may have an allergic reactions to this medicine. Symptoms can inclu de difficulty breathing, skin rash, itching, swelling, or severe dizziness. If y ou notice any of these symptoms, seek medical help quickly. Extra Please speak with your doctor, nurse, or pharmacist if you have any questions ab out this medicine. [email or web address] IMPORTANT NOTE: This document tells you briefly how to take your medicine, but i t does not tell you all there is to know about it.Your doctor or pharmacist may give you other documents about your medicine. Please talk to them if you have an y questions.Always follow their advice. There is a more complete description of this medicine available in [place].Scan this code on your smartphone or tablet o r use the web address below. You can also ask your pharmacist for a printout. If you have any questions, please ask your pharmacist. 2020 [employer]. Lopressor HCT Oral Tablet 50 mg / 25 mg Uses For high blood pressure. Instructions This medicine may be taken with or without food. Swallow with a full glass (8 oz) of water unless your doctor gives you different instructions. It is very important that you take the medicine at about the same time every day . It will work best if you do this. Do not take your last dose of the day within 4-6 hours of bedtime. Store at room temperature in a dry place. Do not keep in the bathroom. Keep the medicine away from heat and light. This medicine will make you urinate more. If you have difficulty passing urine, please tell your doctor. Drink plenty of water while on this medicine. Tell your doctor if you have severe or persistent sweating, diarrhea or vomiting . These can increase your risk of a serious side effect. This medicine may cause you to become more sensitive to the sun. Use sunscreen o r wear protective clothing when you are exposed to the sun. It may take several weeks for this medicine to fully work. It is important that you keep taking each dose of this medicine on time even if you are feeling well. If you forget to take a dose on time, take it as soon as you remember. If it is almost time for the next dose, do not take the missed dose. Return to your juliana l dosing schedule. Do not take 2 doses of this medicine at one time. Please tell your doctor and pharmacist about all the medicines you take. Include both prescription and jjmu-tbt-mrscsfj medicines. Also tell them about any pillo mins, herbal medicines, or anything else you take for your health. If your symptoms do not improve or they worsen while on this medicine, contact y our doctor. If you have diabetes, this medicine may hide some signs of low blood sugar, such as fast heartbeat. Check your blood sugar regularly and for other signs of low blood sugar. Symptoms of low blood sugar may include nausea, shaking, sweating, cold skin, fa st heartbeat, hunger, and irritability. Do not suddenly stop taking this medicine. Check with your doctor before stoppin g. This medicine may affect your blood sugar levels. If you have diabetes, talk to your doctor before changing the dose of your diabetes medicine. This medicine may interfere with some lab test results. Be sure to tell all your healthcare providers that you are taking this medicine. It is very important that you keep all appointments for medical exams and tests while on this medicine. Do not take the medicine more than once during 24 hours. Cautions Tell your doctor and pharmacist if you ever had an allergic reaction to a medici ne. Symptoms of an allergic reaction can include trouble breathing, skin rash, i tching, swelling, or severe dizziness. Some patients with weak hearts may have worsening of symptoms. If you notice dif ficulty breathing, weight gain, or swelling of your legs or ankles, let your doc tor know right away. Some patients taking this medicine have experienced serious side effects. Please speak with your doctor to understand the risks and benefits associated with this medicine. Do not use the medication any more than instructed. This medicine may cause dizziness or fainting, especially after exercising or in hot weather. Be very careful when standing or sitting up quickly. Your ability to stay alert or to react quickly may be impaired by this medicine. Do not drive or operate machinery until you know how this medicine will affect you. Please check with your doctor before drinking alcohol while on this medicine. If you drink more than a few alcoholic beverages each day, ask your doctor [facility] you should be on this medicine. Avoid smoking while on this medicine. Smoking may increase your risk for stroke, heart attack, blood clots, high blood pressure, and other diseases of the heart and blood vessels. Contact your doctor if you notice a change in the amount or darkening of your ur ine. Tell the doctor or pharmacist if you are , planning to be , or b reastfeeding. Ask your pharmacist if this medicine can interact with any of your other medicin es. Be sure to tell them about all the medicines you take. Please tell all your doctors and dentists that you are on this medicine before t hey provide care. Do not start or stop any other medicines without first speaking to your doctor o r pharmacist. Do not share this medicine with anyone who has not been prescribed this medicine . Side Effects The following is a list of some common side effects from this medicine. Please s peak with your doctor about what you should do if you experience these or other side effects. diarrhea dizziness drowsiness or sedation dry mouth lack of energy and tiredness feeling cold or numb, especially in arms and legs slow heartbeat low blood pressure lightheadedness increased risk of sunburn increased urinary frequency Call your doctor or get medical help right away if you notice any of these more serious side effects: confusion depression or feeling sad pain in the eye fainting fast or irregular heart beats high blood sugar signs of kidney damage (such as bloody or bubbly urine, or changes in urine c olor or amount) muscle cramps muscle weakness pale or blue skin, lips or fingernails shortness of breath unusual or unexplained tiredness or weakness sudden or unexplained weight gain A few people may have an allergic reactions to this medicine. Symptoms can inclu de difficulty breathing, skin rash, itching, swelling, or severe dizziness. If y ou notice any of these symptoms, seek medical help quickly. Extra Please speak with your doctor, nurse, or pharmacist if you have any questions ab out this medicine. [email or web address] IMPORTANT NOTE: This document tells you briefly how to take your medicine, but i t does not tell you all there is to know about it.Your doctor or pharmacist may give you other documents about your medicine. Please talk to them if you have an y questions.Always follow their advice. There is a more complete description of this medicine available in [place].Scan this code on your smartphone or tablet o r use the web address below. You can also ask your pharmacist for a printout. If you have any questions, please ask your pharmacist. 2020 [employer]. documented in this encounter Ordered Prescriptions Start Date End Date Prescription Sig Dispensed Refills 05/03/2021 metoprolol tartrate 25 mg Take one 180 tablet 3 tablet tablet by mouth twice daily. 05/03/2021 flecainide (TAMBOCOR) 50 Take one 180 tablet 3 mg tablet tablet by mouth twice daily. documented in this encounter Progress Notes * Rudy Ward MD - 05/03/2021 1:00 PM CDT Date of Service: 05/03/2021 Michelle Mina is a 70 y.o. female. HPI I had the pleasure of seeing Michelle Mina in the Atrial Fibrillation Clinic at [facility] for initial consultation for manageme nt of atrial arrhthymias. As you may know, Michelle Mina is a 70 y.o. female with a past medical history of lung cancer status post right pneumonectomy appr oximately 20 years ago, hypothyroidism, Escalante's esophagus, small hiatal hernia , and reported carotid artery stenosis. She does use supplemental oxygen at 2 L /min on an as-needed basis and sleeps with a BiPAP for history of TARA. She was d iagnosed with atrial fibrillation during an EGD in October 2018. She was starte d on Multaq for her paroxysmal atrial fibrillation as well as Xarelto 20 mg sasha y. She did eventually undergo ILR implantation with Dr. Sage in [place], [place]. d espite therapy with Multaq, her ILR continues to report very frequent episodes o f brief atrial fibrillation/SVT, however with an overall low burden. She was re ferred to Dr. Ward by Dr. Garcia for further assessment and management of her at [facility]. Ms. Mina reports that she occasionally experiences tachypalpitations, which sh e describes as "vibration". Otherwise, she denies any increased shortness of br eath, chest discomfort, dyspnea on exertion, near-syncope or syncope. She does tell me that Multaq is expensive for her and she is currently paying about $100 monthly byc-fp-ufypsf. She is scheduled for an MPI near the end of May. Referral source: Dr. Garcia, [facility] Primary care physician: Marla Maldonado MD Primary mechanical cad designer: Dr. Garcia Initial diagnosis of AF (date): ~ 2 years ago Associated symptoms: sensation of "vibration" I have extensively reviewed outside records from Dr. Garcia's office, her primary mechanical cad designer Her PMHx briefly includes: Paroxysmal Atrial Fibrillation; S/P [employer] Reveal LinQ Implantable Looping Monitor; Essential Hypertension; Peripheral Edema; Lung Cancer with Right Pneumonectomy on n; COPD; Hypothyroid; Carotid Artery S tenosis She has a [id number] score of 3: Female; Age>65; HTN FHx, SHx and ROS documented and I have reviewed, with some pertinent features to include: No FHx of premature CAD. She is a Former-Smoker. Most pertinent ROS is included/discussed throughout the note, e.g. HPI and A/P. ASSESSMENT AND PLAN: -- Dyspnea -- Paroxysmal Atrial Fibrillation -- Frequent Sinus Arrhythmia -- S/P [employer] Reveal LinQ Implantable Looping Monitor at OSH (04/28/20) -- Essential Hypertension -- OSAS--On BiPAP -- Lung Cancer S/P Pneumonectomy -- COPD -- Hypothyroid -- Carotid Artery Stenosis--Followed By Dr. Garcia Ms. Mina, interestingly per her ILR has only 0.8% of AF burden over the last y ear since her device was implanted in April 2020. However that accounts for 1,17 0 reported "AF" events. Obviously I do not have all of those to review. HOWEVER, to have that many "AF" events with such a low burden means that the lo nts had to be very brief in duration. According to her log the longest episode lasted 52 minutes on April 23. UNFORTUNATELY, that is not available for my review. The other episodes all are less than 10 minutes in duration and 7 factor less than 1 minute in duration. She reportedly had 5 episodes today lasting ~2 minutes each, starting at 1149 an d ending at 12:51 PM. Review of these episodes however does not document atrial fibrillation but docum ents what appears to be sinus rhythm with sinus arrhythmia. There are very dist inct P waves on the majority of the transmissions. The P wave morphology does n ot appear to significantly change although I cannot say that absolutely definiti vely but there is clearly a P wave before every QRS. Therefore the device is INCORRECTLY capturing this is an episode of AFIB due to its irregularity. Given the fact that she only has a 0.8% burden and some of the episodes we are s eeing currently are purely sinus arrhythmia I have recommended that she undergo a 30-day MCOT monitor so that we can truly assess her AFIB burden. Although it is possible that even on the MCOT monitor if P waves are difficult t o visualize given her irregular rhythm it may be inconclusive. Regardless at this point, her AF burden over the last year is actually been very low. We had a lengthy discussion regarding Atrial Fibrillation, the pathophysiology, the mechanism, and therapeutic options. We discussed what I call the 3 R's: The Rhythm being abnormal; the Rate being Rapid; and the Risk of stroke. Regarding Rhythm--currently is in sinus rhythm with sinus arrhythmia. We did discuss alternative or optional therapies to manage her atrial fibrillati on. She clearly has had documented atrial fibrillation in the past. Specifically, we discussed continuing Multaq, switching antiarrhythmic drug ther apy, or pursuing an AFIB Ablation. More specifically, at this time we discussed numerous options to control her rhy thm which included: Option 1: Continuing to take Multaq 400 mg BID despite the high cost. Option 2: Switching antiarrhythmic drug therapy to Flecainide 50 mg BID to see if it is more cost effective and is effective at controlling her rhythm. Option 3: Pursue an AFIB ablation procedure. She was not interested in pursing any procedures at this time and expressed bein g more much more comfortable proceeding with continued antiarrhythmic drug thera py. Due to the cost of Multaq although it does not appear to be exceptionally expens kayleigh, and after extended discussion, she wishes to and we will pursue Option 2--> switching from Multaq to Flecainide 50 mg BID. Therefore she will discontinue Multaq remain off it for 72 hours and then procee d with initiation of flecainide 50 mg twice daily. She has had stress test in the past but is due for a stress test and actually mills s one scheduled next month. We will follow that up accordingly as well. Stress test is being done by her local mechanical cad designer. We discussed the association between inadequately treated BP and AFIB and that i nadequately treated HTN will increase the risk of recurrent AFIB and make contro lling the AFIB much more difficult. Thus I emphasized the need to monitor her B P at home and ensure her BP stays within the target range discussed. We discussed the association between obstructive sleep apnea and AFIB and that i nadequately Tx'd sleep apnea will increase the risk of recurrent AFIB and make c ontrolling the AFIB much more difficult. Thus I emphasized the need to be stric tly compliant with her CPAP, etc. And asked her to discuss with her PMD reassess ing her CPAP settings if it hadn't been done over the last year. Regarding Rate--she currently has ventricular rate control at least to some degr ee on Multaq. She is otherwise not on any AV node suppressive therapy. With e initiation of Flecainide however, she will intiatite Metoprolol tartrate 25 mg twice daily. Regarding Risk of Stroke-- She remains on Xarelto 20 mg/d. She is taking the Xarelto with food. Her [id number] score is 3 due to being female, age over 65 y.o. and having essen tial hypertension. She denies any bleeding issues-blood in the urine, blood in the stool, toleratin g anticoagulation without obvious issue. NOTEIf She Has Recurrent A. fib after Being on Flecainide 50 Mg Twice Da vinod for at least 1 month, pending her QRS duration, it may be reasonable to incr ease her Flecainide to 100 mg twice daily. Alternatively we could reinitiate Mul taq. See additional plan details below. PLAN: -- She will discontinue Multaq. -- She will initiate Flecainide 50 mg BID. -- She will initiate Metoprolol Tartrate 25 mg BID. -- We will proceed with an MCOT monitor. -- Since she is on anticoagulation, I have asked her to monitor for any signs or symptoms of bleeding, including blood in the stool or urine, etc and to contact her PMD if any occurs. -- I have asked her to Check her BP (Blood Pressure) daily and vary the time of day she checks it. -- We discussed that exercise helps with her blood pressure and she should try t o get at least 30 minutes of moderate intensity exercise at least 4 days a week. -- We discussed the importance of a low salt diet up to 2 grams daily. -- We discussed that her desired BP is less than 130 and less than 80. -- We discussed if her blood pressure is above the parameters described, to cont act us or her primary care doctor's office. Total Time Today was 72 minutes in the following activities: Preparing to see th e patient, Obtaining and/or reviewing separately obtained history, Performing a medically appropriate examination and/or evaluation, Counseling and educating th e patient/family/caregiver, Ordering medications, tests, or procedures, Referrin g and communication with other health district manager primary care sales (when not separately re ported) and Documenting clinical information in the electronic or other health r ecord Ms. Mina was educated regarding plan of care. She was instructed to call our o ffice with any questions or concerns, as well as to notify us of any new or wors ening symptoms. She verbalized understanding. I appreciate the opportunity to participate in the care of your patient. Please do not hesitate to contact me directly if you have any questions or furth er insights into her care. I have scheduled her follow-up with me in 6 month(s) at our [place] office. AF Risk Factors HTN: No BMI: 36.03 --- Referral to weight loss clinic? (BMI greater than 30): No - has "[facility]" group locally that she prefers. Actively working towards weight loss. Sleep apnea: --- STOP-BANG: N/A - on bipap --- Home sleep study with referral to sleep medicine?: No Alcohol use: No Caffeine use:Yes - 2-3 c of coffee each morning Tobacco use: No Recent TSH: WNL recently Rate Rate control medications (past and present): none Well controlled on current regimen?: Yes Rhythm Required DCCV in the past: No Rhythm control medications (past and present): dronedarone Any prior ablations: No Risk of Stroke CHADSVASC score: 2 (age, gender) Oral anticoagulation: Xarelto 20mg Bleeding issues: No Referral for LAAO: No DETAILED UPDATED PMHx: -- 10/15/2018 - ECHO: ([facility]) Left ventricular dysfunction with mild mi d and distal anterior and septal hypokinesis, borderline systolic ejection fract ion, moderate decreased diastolic compliance, and normal wall thicknesses. Left atrial enlargement. Mitral regurgitation, mild. Tricuspid regurgitation, mild to moderate. Pulmonary hypertension, mild to moderate. Paroxysmal supraventri cular tachycardia, probably paroxysmal atrial flutter. -- 10/28/2018 - MPI: ([facility]) No evidence of myocardial infarct ion. No evidence of pharmacologically induced myocardial ischemia. Normal restin g LV cavity size, wall motion. Diaphragmatic attenuation. 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 The EBT used was provided by the [employer]. Questions regarding this patient s specific risks for both stroke and major bleeding have been answered to her sa tisfaction. Vitals: 05/03/21 1302 BP: 110/72 BP Source: Arm, Left Upper Patient Position: Sitting Pulse: 84 Weight: 89.4 kg (197 lb) Height: 1.575 m (5' 2") PainSc: Zero Body mass index is 36.03 kg/m. Past Medical History Patient Active Problem List Diagnosis Date Noted Peripheral edema 04/29/2021 Per OV note with Dr. Nadeem Garcia on 01/29/2021. Atrial fibrillation (HCC) 04/29/2021 Per OV note with Dr. Nadeem Garica on 01/29/2021. 10/15/2018 - ECHO: ([facility]) Left ventricular dysfunction with mild mid a nd distal anterior and septal hypokinesis, borderline systolic ejection fraction , moderate decreased diastolic compliance, and normal wall thicknesses. Left at rial enlargement. Mitral regurgitation, mild. Tricuspid regurgitation, mild to moderate. Pulmonary hypertension, mild to moderate. Paroxysmal supraventricul ar tachycardia, probably paroxysmal atrial flutter. Dyspnea 04/29/2021 Per OV note with Dr. Nadeem Garcia on 01/29/2021. Lung cancer (HCC) 04/29/2021 Per OV note with Dr. Nadeem Garcia on 01/29/2021. 04/2020 - s/p right pneumonectomy COPD (chronic obstructive pulmonary disease) ([facility]) 04/29/2021 Hypothyroid 04/29/2021 Chest pain 04/29/2021 Per OV note with Dr. Nadeem Garcia on 01/29/2021. 10/28/2018 - MPI: ([facility]) No evidence of myocardial infarction . No evidence of pharmacologically induced myocardial ischemia. Normal resting L V cavity size, wall motion. Diaphragmatic attenuation. Carotid artery stenosis 04/29/2021 Per OV note with Dr. Nadeem Garcia on 01/29/2021. Status post placement of implantable loop recorder 04/29/2021 Review of Systems Constitution: Negative. HENT: Negative. Eyes: Negative. Cardiovascular: Positive for dyspnea on exertion (Due to Lung Cancer). Respiratory: Positive for shortness of breath (due to One Lung). Endocrine: Negative. Hematologic/Lymphatic: Negative. Skin: Negative. Musculoskeletal: Negative. Gastrointestinal: Negative. Genitourinary: Negative. Neurological: Negative. Psychiatric/Behavioral: Negative. Allergic/Immunologic: Negative. All other systems reviewed and are negative. Physical Exam General Appearance: no acute distress, she is obese Skin: warm & intact HEENT: unremarkable Neck Veins: neck veins are flat & not distended Carotid Arteries: no bruits Chest Inspection: chest is normal in appearance Auscultation/Percussion: right lung sounds absent, left lung CTA in all camara, on supplemental O2 at 2lpm Cardiac Rhythm: regular rhythm & normal rate Cardiac Auscultation: Normal S1 & S2, no S3 or S4, no rub Murmurs: no cardiac murmurs Extremities: trace lower extremity edema; 2+ symmetric distal pulses Abdominal Exam: Obese, soft, non-tender, no masses, bowel sounds normal Liver & Spleen: no organomegaly Neurologic Exam: oriented to time, place and person; no focal neurologic deficit s Psychiatric: Normal mood and affect. Behavior is normal. Judgment and thought c ontent normal. Cardiovascular Studies ECG today documents sinus rhythm with sinus arrhythmia versus possible ectopic a trial rhythm, more likely sinus arrhythmia at 84 bpm with left anterior fascicul ar block, low voltage in the precordium, and poor R wave progression. [employer] Reveal LinQ Implantable Looping Monitor Full Device Check performed reprogramming which I have extensively reviewed. Changes, if done, as discuss ed below and is detailed in other dictation/note. See detailed description of Li nq device interrogation above and assessment and plan. Problems Addressed Today Encounter Diagnoses Name Primary? Atrial fibrillation, unspecified type (HCC) Yes Current Medications (including today's revisions) acetaminophen SR (ARTHRITIS PAIN RELIEF) 650 mg tablet Take 1,300 mg by mout h as Needed for Pain. flecainide (TAMBOCOR) 50 mg tablet Take one tablet by mouth twice daily. hydroCHLOROthiazide (HYDRODIURIL) 25 mg tablet Take 25 mg by mouth every mor francisco javier. levothyroxine (SYNTHROID) 112 mcg tablet Take 168 mcg by mouth twice weekly. metoprolol tartrate 25 mg tablet Take one tablet by mouth twice daily. pantoprazole DR (PROTONIX) 40 mg tablet Take 40 mg by mouth daily. rivaroxaban (XARELTO) 20 mg tablet Take 20 mg by mouth daily. Take with food . documented in this encounter Plan of Treatment Order Schedule Name Type Priority Associated Diag noses Ordered: 05/03/2021 ECG 12-LEAD ECG Routine Atrial fibrilla tion, unspecified type (HCC) Expected: 05/03/2021 (Approximate), Expi res: 05/03/2022 EVENT MONITOR Heart Rhythm Routine Atrial fibrilla tion, Management unspecified type (HCC) documented as of this encounter Procedures Comments Procedure Name Priority Date/Time Associated Diag nosis ECG-SCAN 05/03/2021 12:00 AM CDT documented in this encounter Results * ECG-SCAN (05/03/2021 12:00 AM CDT) Narrative Performed At This result has an attachment that is n ot available. Ordered by an unspecified provider. documented in this encounter Visit Diagnoses Diagnosis Atrial fibrillation, unspecified type ( HCC) - Primary documented in this encounter Discontinued Medications Start Date End Date Medication Sig Discontinue Reason 05/03/2021 dronedarone (MULTAQ) 400 Take 400 mg Per Provider mg tablet by mouth twice daily with meals. documented as of this encounter Orders First Ordered Date Appointment Count Last Ordered Date REQUEST FOR CARDIOLOGY APPOINTMENT 1 documented in this encounter Additional Health Concerns Assessment Noted Time PHQ-2 Depression Total Score: 0 05/03/2021 1:05 PM CDT documented as of this encounter
--- OUTSIDE RECORDS SUMMARY | 2021-05-14 02:39 | XMS REPORT | Encounter Summary ---
Author Author [facility] Organization [facility] Address Unknown Phone Unavailable Care Team Providers Care Commodity Buyer Name Role Phone Marla Maldonado MD PCP Encounter Details Care Team Description Date Type Department 05/03/2021 Travel Social History Date Tobacco Use Types Packs/Day [...] / COVID-19? documented as of this encounter Plan of Treatment Not on filedocumented as of this encounter Visit Diagnoses Not on filedocumented in this encounter Additional Health Concerns Assessment Noted Time PHQ-2 Depression Total Score: 0 05/03/2021 1:05 PM CDT documented as of this encounter
--- OUTSIDE RECORDS SUMMARY | 2021-05-14 02:39 | XMS REPORT | Clinical Summary ---
Author Author [facility] Organization [facility] Address Unknown Phone Unavailable Care Team Providers Care Cap Sizer Name Role Phone Marla Maldonado MD PCP Source Comments Some departments are not documenting in the electronic medical record. If you d o not see the information that you expected, contact [facility] [employer] Information Management department at [phone] for further assistan ce in locating additional records.[facility] Allergies Comments Active Allergy Reactions Severity Noted Date Ciprofloxacin UNKNOWN Low 04/29/2021 Penicillins UNKNOWN Low 04/29/2021 Venom-Wasp UNKNOWN Low 04/29/2021 Medications End Date Status Medication Sig Dispensed Refills Start Date Active acetaminophen SR Take 1,300 mg 0 (ARTHRITIS PAIN RELIEF) by mouth as 650 mg tablet Needed for Pain. Active hydroCHLOROthiazide Take 25 mg by 0 (HYDRODIURIL) 25 mg mouth every tablet morning. Active levothyroxine (SYNTHROID) Take 168 mcg 0 112 mcg tablet by mouth twice weekly. Active pantoprazole DR Take 40 mg by 0 (PROTONIX) 40 mg tablet mouth daily. Active rivaroxaban (XARELTO) 20 Take 20 mg by 0 mg tablet mouth daily. Take with food. Active flecainide (TAMBOCOR) 50 Take one 180 tablet 3 0 mg tablet tablet by 1 mouth twice daily. Active metoprolol tartrate 25 mg Take one 180 tablet 3 tablet tablet by 1 mouth twice daily. 05/03/2021 Discontinued (Per Provider) dronedarone (MULTAQ) 400 Take 400 mg 0 mg tablet by mouth twice daily with meals. Active Problems Problem Noted Date Peripheral edema 04/29/2021 Overview: Formatting of this note might be differ ent from the original. Per OV note with Dr. Nadeem Garcia on . Atrial fibrillation 04/29/2021 Overview: Formatting of this note might be differ ent from the original. Per OV note with Dr. Nadeem Garcia on . 10/15/2018 - ECHO: ([facility]) Lef t ventricular dysfunction with mild mid and distal anterior and septal hypo kinesis, borderline systolic ejection fraction, moderate decreased d iastolic compliance, and normal wall thicknesses. Left atrial enlargement. Mitral regurgitation, mild. Tricuspid regurgitation, mild to modera te. Pulmonary hypertension, mild to moderate. Paroxysmal supraventricular tachycardia, probably paroxysmal atrial flutter. Dyspnea 04/29/2021 Overview: Formatting of this note might be differ ent from the original. Per OV note with Dr. Nadeem Garcia on . Lung cancer 04/29/2021 Overview: Formatting of this note might be differ ent from the original. Per OV note with Dr. Nadeem Garcia on . 04/2020 - s/p right pneumonectomy COPD (chronic obstructive pulmonary disease) 021 Hypothyroid 04/29/2021 Chest pain 04/29/2021 Overview: Formatting of this note might be differ ent from the original. Per OV note with Dr. Nadeem Garcia on . 10/28/2018 - MPI: ([facility]) No evidence of myocardial infarction. No evidence of pharmacologi yady induced myocardial ischemia. Normal resting LV cavity size, wall mot ion. Diaphragmatic attenuation. Carotid artery stenosis 04/29/2021 Overview: Formatting of this note might be differ ent from the original. Per OV note with Dr. Nadeem Garcia on . Status post placement of implantable loop recorder 0 04/29/2021 Encounters Care Team Description Date Type Specialty Christopher Reeves RN HRM - Abnormal Results (Remote Device - Abnormal Rhythms) 05/11/2021 Telephone Cardiology Rudy Ward MD Atrial fibrillation (Device check today) 05/03/2021 Office Visit Cardiology Rudy Ward MD 05/03/2021 Hospital Cardiology Encounter [facility] Test/procedure (30 day MCOT online enrol lment ) 05/03/2021 Documentation Cardiology 05/03/2021 Rudy Mcguire MD Erroneous encounter-disregard 05/02/2021 Documentation Cardiology Pamela Moreno Records Request 04/30/2021 Telephone Cardiology Doreen Lucas RN New Patient (Needs substance use assessm ent); Records Request (Dr. Antolin Mace); Records Request (Dr. Sage); Records Request (Dr. Nadeem Garcia) 04/29/2021 Patient Profile Cardiology Angella Kirk BSN Atrial fibrillation (AFC) 04/20/2021 Documentation Cardiology Angella Kirk BSN Atrial fibrillation, unspecified type (H CC) (Primary Dx) 03/09/2021 Orders Only Cardiology from Last 3 Months Immunizations Name Administration Dates Next Due Surgical History Surgery Date Site/Laterality Comments ELECTROCARDIOGRAM DOPPLER ECHOCARDIOGRAPHY RHYTHM DEVICE PLACEMENT CARDIOVASCULAR STRESS TEST Medical History Medical History Date Comments Peripheral edema 04/29/2021 Atrial fibrillation (HCC) 04/29/2021 Dyspnea 04/29/2021 Lung cancer (HCC) 04/29/2021 COPD (chronic obstructive pulmonary 04/29/2021 disease) (HCC) Hypothyroid 04/29/2021 Chest pain 04/29/2021 Carotid artery stenosis 04/29/2021 Status post placement of implantable 04/29/2021 loop recorder Family History Medical History Relation Name Comments Heart Disease Father Kidney Disease Father Hypertension Mother Heart Disease Paternal Grandmother Relation Name Status Comments Father Mother Paternal Grandmother Social History Date Tobacco Use Types Packs/Day Years Used Former Smoker Smokeless Tobacco: Never Used Drinks/Week oz/Week Comments Alcohol Use Not Currently Sex Assigned at Date Recorded Not on file Date Recorded COVID-19 Exposure Response 05/03/2021 12:45 PM CDT In the last month, have you been in contact with No / Unsure someone who was confirmed or suspected to have Coronavirus / COVID-19? Last Filed Vital Signs Reading Time Taken [...] 05/03/2021 1:02 PM CDT Body Mass Index Plan of Treatment Health Maintenance Due Date Last Done Comments MEDICARE ANNUAL WELLNESS 1950 VISIT DTAP/TDAP VACCINES (1 - 1968 Tdap) HEPATITIS C SCREENING 1968 PHYSICAL (COMPREHENSIVE) 1968 EXAM BREAST CANCER SCREENING 1990 COLORECTAL CANCER 2000 SCREENING SHINGLES RECOMBINANT 2000 VACCINE (1 of 2) OSTEOPOROSIS 2015 SCREENING/MONITORING PNEUMONIA (PPSV23) 2015 VACCINE (1 of 1 - PPSV23) INFLUENZA VACCINE 07/06/2021 COVID-19 VACCINE Completed 12/28/2020, 12/02/2020 Procedures Comments Procedure Name Priority Date/Time Associated Diag nosis PATIENT FROM CLINIC - Routine 05/03/2021 Atrial f ibrillation, DEVICE EVALUATION - ILR 1:22 PM CDT unspecified t ype (HCC) PROGRAM ECG-SCAN 05/03/2021 12:00 AM CDT from Last 3 Months Results * DEVICE EVALUATION - ILR (05/03/2021 1:22 PM CDT) Generator Medtronic MURJ Cleat Thrower Generator [id number] MURJ Serial # Generator Model REVEAL LINQ [id number] MURJ # Generator -- MURJ Implnat Date EP DEVICE Pt currently follows in MURJ PATIENT NOTES [facility] with Dr. Perez's office, here for second [...] Address City/State/ZIP Code P alice Number MURJ * ECG-SCAN (05/03/2021 12:00 AM CDT) Narrative Performed At This result has an attachment that is n ot available. Ordered by an unspecified provider. from Last 3 Months Insurance Type Payer Benefit Subscriber ID Effective Phone Address Plan / Dates Group Medicare AETNA MEDICARE AETNA [id number] 2019-P MEDICARE resent PPO Advance Directives Patient Evaluation Advisor Explanation Type Date Recorded Advance Directive/DPOA
--- OUTSIDE RECORDS SUMMARY | 2021-05-14 03:24 | XMS REPORT | Encounter Summary ---
Author Author [facility] Organization [facility] Address Unknown Phone Unavailable Care Team Providers Care Radio Program Checker Name Role Phone Marla Maldonado MD PCP Reason for Visit * Reason Onset Date Comments HRM - Abnormal Results 05/11/2021 (Remote Device - Abnormal Rhythms) Encounter Details Care Team Description Date Type Department Christopher Reeves RN HRM - Abnormal Results (Remote Device - Abnormal Rhythms) 05/11/2021 Telephone Cardiology: [facility], [address] [place] [address]. [address] [place] [address] Social History Date Tobacco Use [...] - 05/11/2021 3:06 PM CDT RC to [facility]. 05/10/212203 SB rate 33bpm lasting 2 minutes, returned to SR. * Telephone Encounter - Christopher Reeves RN - 05/11/2021 3:06 PM CDT ----- Message from Geni Beach LPN sent at 05/11/2021 11:34 AM CDT ----- Regarding: MPE- abnormal EKG [facility] [place] [phone] opt 1. Said that she has abnormal EKG. documented in this encounter Plan of Treatment Not on filedocumented as of this encounter Visit Diagnoses Not on filedocumented in this encounter Additional Health Concerns Assessment Noted Time PHQ-2 Depression Total Score: 0 05/03/2021 1:05 PM CDT documented as of this encounter
--- OUTSIDE RECORDS SUMMARY | 2021-05-14 03:24 | XMS REPORT | Encounter Summary ---
Author Author [facility] Organization [facility] Address Unknown Phone Unavailable Care Team Providers Care Timber Incisor Operator Name Role Phone Marla Maldonado MD PCP Encounter Details Care Team Description Date Type Department Rudy Ward MD [address] [facility] [address] [facility] [address] [place], [place] [id number] 05/03/2021 Hospital Cardiology: [facility] [address] [facility] [address] [place] [id number] Social History Date Tobacco Use Types Packs/Day [...] (05/03/2021 1:22 PM CDT) Generator Medtronic MURJ Seasonal Tax Preparer Generator [id number] MURJ Serial # Generator Model REVEAL LINQ [id number] MURJ # Generator -- MURJ Implnat Date EP DEVICE Pt currently follows in MURJ PATIENT NOTES [facility] with Dr. Perez's office, [...]
== END 2021-05-12 12:30 | disposition home or self-care (01) ==
LOC: EDUNIT# 17:58 → ER 18:00 → CSD 18:30
PROVIDERS: ADMIT Internal Medicine Cardiovascular Disease; ATTEND Internal Medicine Cardiovascular Disease
DX: I49.5 Sick sinus syndrome (principal); I10 Essential (primary) hypertension; I48.0 Paroxysmal atrial fibrillation; J44.9 Chronic obstructive pulmonary disease, unspecified; I48.20 Chronic atrial fibrillation, unspecified; K21.9 Gastro-esophageal reflux disease without esophagitis; E03.9 Hypothyroidism, unspecified; M19.90 Unspecified osteoarthritis, unspecified site; G47.30 Sleep apnea, unspecified; Z90.2 Acquired absence of lung [part of]; Z79.890 Hormone replacement therapy; Z79.899 Other long term (current) drug therapy; Z80.1 Family history of malignant neoplasm of trachea, bronchus and lung
CPT/HCPCS: 36415; 71045; 80048; 80053; 83735; 83880; 84443; 84484; 85025; 85610; 85730; 93005; 93041

== ENCOUNTER → 2021-05-23 | Outpatient (CLI) | payer MEDICARE ==
[~2021-05-23] MED LIST changes: +ACET-2422 PO; +FLEC50TA PO; +HYDR25TA4 PO; +METO-333 PO
--- NOTE | 2021-05-23 09:21 | Diagnostic Imaging Report ---
PROCEDURE: US Renal Bilateral. INDICATION: HYDRONEPHROSIS ON PRIOR CT. TECHNIQUE: Multiple real-time grayscale sonographic images were obtained of the kidneys. CORRELATION: CT chest 01/05/2021 FINDINGS: RIGHT KIDNEY: 10.8 x 5.2 x 5.7 cm. There is normal echotexture of the right renal parenchyma. No definitive calcification. No suggestion for any significant hydronephrosis or obstructive uropathy. LEFT KIDNEY: 10.5 x 4.4 x 4.8 cm. There is normal echotexture of the left renal parenchyma. No definitive calcification or hydronephrosis. URINARY BLADDER: The bladder is relatively decompressed and not well evaluated. Bilateral ureteral jets are present. IMPRESSION: 1. Unremarkable renal sonogram. Dictated by: Dictated on workstation # [id number]
== END ==
LOC: RAD 09:00
PROVIDERS: ATTEND Family Medicine
DX: N13.30 Unspecified hydronephrosis (principal)
CPT/HCPCS: 76770

== ENCOUNTER → 2021-05-30 | Outpatient (CLI) | payer MEDICARE ==
[~2021-05-30] MED LIST changes: +CATHETER FLUSH 10 ML SYR IV PRN; +REGADENOSON 0.4 MG/5 ML SYR (LEXISCAN) IV ONE
[2021-05-30 09:10] VITALS: BP 145/88
--- NOTE | 2021-05-30 12:18 | Cardiology Stress Test Report ---
Stress Test Report Date of Procedure/Referring: Date of Procedure: May 30, 2021 PCP Hazel Garcia MD Admitting Physician Marla Maldonado MD Indications: HTN Baseline Heart Rate: 70 Baseline Blood Pressure: Blood Pressure Systolic: 145 Blood Pressure Diastolic: 88 Baseline Vitals Vital Signs Date Time Temp Pulse Resp B/P (MAP) Pulse Ox O2 Delivery O2 Flow Rate FiO2 05/30/21 09:10 77 17 145/88 (107) 97 Nasal Cannula 2.00 Baseline EKG: Baseline EKG: NSR Summary After explaining the procedure to the patient, she signed a consent and then brought to the stress nuclear laboratory. Patient received 0.4 mg Lexiscan for stress test, ECG, heart rate and blood pressure were monitored continuously. Resting and stress dose of radio tracer were injected, imaging was acquired and reviewed in short axis, horizontal long axis and vertical long axis views. TID: 1.1 SSS: 0 SDS: 0 EF: 60 1. Patient tolerated Lexiscan well 2. Breast attenuation with no significant ischemia or infarction on SPECT images 3. Normal left ventricular size, EF 60% HAZEL GARCIA MD May 30, 2021 12:18
== END ==
LOC: CARD 08:30
PROVIDERS: ATTEND Internal Medicine Cardiovascular Disease
DX: I10 Essential (primary) hypertension (principal); I25.10 Atherosclerotic heart disease of native coronary artery without angina pectoris
CPT/HCPCS: 78452; 93017; A9502

== ENCOUNTER → 2021-06-20 | Outpatient (RCR) | payer MEDICARE ==
[~2021-06-20] MED LIST changes: -CATHETER FLUSH 10 ML SYR IV PRN; -REGADENOSON 0.4 MG/5 ML SYR (LEXISCAN) IV ONE
== END | disposition home or self-care (01) ==
LOC: CR3 05-21 16:18
PROVIDERS: ATTEND Family Medicine
DX: Z29.8 Encounter for other specified prophylactic measures (principal)

== ENCOUNTER 2021-07-20 13:45 | Outpatient (RCR) | payer MEDICARE | END 2021-07-22 | disposition home or self-care (01) | LOC: CR3 13:45 | PROVIDERS: ATTEND Family Medicine | DX: Z29.8 Encounter for other specified prophylactic measures (principal) ==

== ENCOUNTER 2021-08-20 14:27 | Outpatient (RCR) | payer MEDICARE | END 2021-08-22 | disposition home or self-care (01) | LOC: CR3 14:27 | PROVIDERS: ATTEND Family Medicine | DX: Z29.8 Encounter for other specified prophylactic measures (principal) ==

== ENCOUNTER 2021-09-19 15:36 | Outpatient (RCR) | payer MEDICARE | END 2021-09-23 | disposition home or self-care (01) | LOC: CR3 15:36 | PROVIDERS: ATTEND Family Medicine | DX: Z29.8 Encounter for other specified prophylactic measures (principal) ==

== ENCOUNTER → 2021-10-09 | Outpatient (CLI) | payer MEDICARE ==
[~2021-10-09] MED LIST changes: +CATHETER FLUSH 10 ML SYR IV PRN; +HOLD METFORMIN - RECEIVED CONTRAST 20 ML VIAL IV SCH; +IOHEXOL 350 MG/ML 100 ML (OMNIPAQUE 350) VIAL IV ONE; +NS 100 ML (IVPB) BAG IV ONE
[2021-10-09 09:15] LABS: CREATININE SERUM 0.71 MG/DL (0.60-1.30)
--- NOTE | 2021-10-09 10:02 | Diagnostic Imaging Report ---
EXAMINATION: CT chest with intravenous contrast. TECHNIQUE: Multiple contiguous axial images were obtained through the chest after the uneventful administration of intravenous contrast. All CT scans use one or more of the following dose optimizing techniques: automated exposure control, MA and/or KvP adjustment based on patient size and exam type or iterative reconstruction. HISTORY: Carcinoid tumor. COMPARISON: 01/05/2021. FINDINGS: There is no edema or pneumonia. No pleural effusion. No pneumothorax. No suspicious nodules. There has been a right pneumonectomy. There is no axillary or supraclavicular lymphadenopathy. There is no mediastinal lymphadenopathy. Heart size is normal. There are no coronary artery calcifications. No pericardial effusion. Aorta is normal in caliber. Limited views of the upper abdomen show changes of cholecystectomy. There are no suspicious osseus lesions. IMPRESSION: Post surgical changes of right pneumonectomy. No metastatic disease seen. Dictated by: Dictated on workstation # [id number]
--- NOTE | 2021-10-09 12:06 | Diagnostic Imaging Report ---
INDICATION: 71-year-old asymmetric postmenopausal female COMPARISON: None available. FINDINGS: AP Spine L1-L4: [BMD (g/cm2): 0.876] [T-Score: -2.7] [Z-Score: -1.8] [BMD Previous: na] [BMD % Change: na] LT Hip Neck: [BMD (g/cm2): 0.472] [T-Score: -4.1] [Z-Score: -2.8] LT Hip Total: [BMD (g/cm2):0.567] [T-Score:-3.5] [Z-Score: -2.5] [BMD Previous: na] [BMD % Change: na] RT Hip Neck: [BMD (g/cm2):0.554] [T-Score:-3.5] [Z-Score:-2.2] RT Hip Total: [BMD (g/cm2):0.615] [T-score:-3.1] [Z-Score:-2.1] [BMD Previous:na] [BMD % Change:na] *Indicates significant change from prior examination based on 95% confidence level. World Health Organization criteria for BMD interpretation classify patients as Normal (T-score at or above -1.0), Osteopenic (T-score between -1.0 and -2.5) or Osteoporotic (T-score at or below -2.5). LIMITATIONS AND MODIFICATION: None. FRACTURE RISK (FRAX SCORE): The ten year probability of (%): Major Osteoporotic Fracture: [na] Hip Fracture: [na] IMPRESSION: 1. Osteoporosis. 2. Baseline examination. 3. See below National Osteoporosis Foundation guidelines on when to potentially initiate pharmacologic therapy. Based on the National Osteoporosis Foundation Guidelines, pharmacologic treatment should be initiated in any of the following, unless clinical conditions suggest otherwise: * Any patient with prior fragility fracture of the hip or vertebrae. A spine fracture indicates 5X risk for subsequent spine fracture and 2X risk for subsequent hip fracture. * Osteoporosis (T-score <-2.5). * Postmenopausal women and men age 50 and older with low bone mass/osteopenia (T-score between -1.0 and -2.5) by DXA and 10-year major osteoporotic fracture greater than 20% or a 10-year probability of hip fracture greater than 3%. These fracture risks are supplied above in the FRAX score, if applicable. * Clinician judgement and/or patient preferences may indicate treatment for people with 10-year fracture probabilities above or below these levels. Dictated by: Dictated on workstation # [id number]
== END ==
LOC: RAD 08:30
PROVIDERS: ATTEND Family Medicine
DX: M81.0 Age-related osteoporosis without current pathological fracture (principal); C7A.090 Malignant carcinoid tumor of the bronchus and lung; Z78.0 Asymptomatic menopausal state; Z90.2 Acquired absence of lung [part of]
CPT/HCPCS: 36415; 71260; 77080; 82565; 84520

== ENCOUNTER 2021-11-02 14:13 | Outpatient (RCR) | payer MEDICARE ==
[~2021-11-02 14:13] MED LIST changes: -CATHETER FLUSH 10 ML SYR IV PRN; -HOLD METFORMIN - RECEIVED CONTRAST 20 ML VIAL IV SCH; -IOHEXOL 350 MG/ML 100 ML (OMNIPAQUE 350) VIAL IV ONE; -NS 100 ML (IVPB) BAG IV ONE
== END 2021-11-04 | disposition home or self-care (01) ==
LOC: CR3 14:13
PROVIDERS: ATTEND Family Medicine
DX: Z29.8 Encounter for other specified prophylactic measures (principal)

== ENCOUNTER → 2021-12-05 | Outpatient (RCR) | payer MEDICARE | END | disposition home or self-care (01) | LOC: CR3 11-05 14:19 | PROVIDERS: ATTEND Family Medicine | DX: Z29.8 Encounter for other specified prophylactic measures (principal) ==

== ENCOUNTER → 2021-12-18 | Outpatient (CLI) | payer MEDICARE ==
[~2021-12-18] MED LIST changes: +DENOSUMAB 60 MG/1 ML (PROLIA) SQ ONE
[2021-12-18 11:10] VITALS: BP 106/83
== END ==
LOC: SDC 10:50
PROVIDERS: ATTEND Nurse Practitioner Family
DX: M81.0 Age-related osteoporosis without current pathological fracture (principal); Z79.899 Other long term (current) drug therapy
CPT/HCPCS: 96372

== ENCOUNTER 2022-02-01 14:58 | Outpatient (RCR) | payer MEDICARE ==
[~2022-02-01 14:58] MED LIST changes: -DENOSUMAB 60 MG/1 ML (PROLIA) SQ ONE
== END 2022-02-02 | disposition home or self-care (01) ==
LOC: CR3 14:58
PROVIDERS: ATTEND Family Medicine
DX: Z29.8 Encounter for other specified prophylactic measures (principal)

== ENCOUNTER 2022-04-03 14:38 | Outpatient (RCR) | payer MEDICARE | END 2022-04-04 | disposition home or self-care (01) | LOC: CR3 14:38 | PROVIDERS: ATTEND Family Medicine | DX: Z29.8 Encounter for other specified prophylactic measures (principal) ==

== ENCOUNTER → 2022-04-04 | Outpatient (CLI) | payer MEDICARE ==
--- NOTE | 2022-04-04 13:43 | Diagnostic Imaging Report ---
Indication: Routine screening. Comparison is made with prior mammograms 04/03/2021 and 10/11/2019. 2-D and 3-D bilateral screening mammography was performed with CAD. Both breasts are heterogeneously dense, limiting the sensitivity of mammography. Scattered benign-appearing calcifications are noted throughout both breasts. No spiculated mass or malignant-appearing microcalcifications are seen. Axillae are unremarkable. IMPRESSION: BI-RADS Category 2 No mammographic features suspicious for malignancy are identified. ACR BI-RADS Category 2: Benign findings. Result letter will be mailed to the patient. Note: At least 10% of breast cancer is not imaged by mammography. Dictated by: Dictated on workstation # [id number]
== END ==
LOC: RAD 10:45
PROVIDERS: ATTEND Nurse Practitioner Family
DX: Z12.31 Encounter for screening mammogram for malignant neoplasm of breast (principal)
CPT/HCPCS: 77063; 77067

== ENCOUNTER 2022-05-27 17:12 | Outpatient (RCR) | payer MEDICARE | END 2022-06-04 | disposition home or self-care (01) | LOC: CR3 17:12 | PROVIDERS: ATTEND Family Medicine | DX: Z29.8 Encounter for other specified prophylactic measures (principal) ==

== ENCOUNTER → 2022-07-02 | Outpatient (CLI) | payer MEDICARE ==
[~2022-07-02] MED LIST changes: +DENOSUMAB 60 MG/1 ML (PROLIA) SQ ONE
[2022-07-02 11:07] VITALS: BP 126/81
== END ==
LOC: SDC 10:49
PROVIDERS: ATTEND Nurse Practitioner Family
DX: M81.0 Age-related osteoporosis without current pathological fracture (principal)
CPT/HCPCS: 96372

== ENCOUNTER → 2022-08-22 | Outpatient (CLI) | payer MEDICARE ==
[~2022-08-22] MED LIST changes: -DENOSUMAB 60 MG/1 ML (PROLIA) SQ ONE
--- NOTE | 2022-08-22 17:10 | Diagnostic Imaging Report ---
EXAMINATION: Lumbar spine radiographs. EXAM DATE: 08/22/2022 11:25 AM COMPARISON: None available. HISTORY: Lumbago with sciatica, right side. Other, dorsalgia, primary hypertension. TECHNIQUE: 3 views. FINDINGS: There is dextrocurvature of the lumbar spine with multilevel lumbar spondylosis. Multilevel disc height loss. Vertebral body heights appear maintained. There is significant multilevel facet hypertrophy. Vascular calcifications are present. No acute fracture is seen. Soft tissues are unremarkable. IMPRESSION: Multilevel degenerative changes and dextrocurvature of the lumbar spine without acute osseous abnormality. Dictated by: Dictated on workstation # [id number]
== END ==
LOC: RAD 11:01
PROVIDERS: ATTEND Registered Nurse Critical Care Medicine
DX: M47.816 Spondylosis without myelopathy or radiculopathy, lumbar region (principal); M43.8X6 Other specified deforming dorsopathies, lumbar region; I10 Essential (primary) hypertension
CPT/HCPCS: 72100

== ENCOUNTER 2022-09-02 14:59 | Outpatient (RCR) | payer MEDICARE | END 2022-09-04 | disposition home or self-care (01) | LOC: CR3 14:59 | PROVIDERS: ATTEND Family Medicine | DX: Z29.8 Encounter for other specified prophylactic measures (principal) ==

== ENCOUNTER → 2022-11-06 | Outpatient (CLI) | payer MEDICARE ==
--- NOTE | 2022-11-06 17:13 | Diagnostic Imaging Report ---
EXAMINATION: CT chest without contrast. TECHNIQUE: Multiple contiguous axial images were obtained through the chest without the use of intravenous contrast. All CT scans use one or more of the following dose optimizing techniques: automated exposure control, MA and/or KvP adjustment based on patient size and exam type or iterative reconstruction. HISTORY: Carcinoid tumor. COMPARISON: 10/09/2021. FINDINGS: There is no edema or pneumonia. No pleural effusion. No pneumothorax. No suspicious nodules. There has been a right pneumonectomy. There is no axillary or supraclavicular lymphadenopathy. There is no mediastinal lymphadenopathy. Heart size is normal. There are no coronary artery calcifications. No pericardial effusion. Aorta is normal in caliber. Limited views of the upper abdomen show changes of cholecystectomy. There are no suspicious osseus lesions. IMPRESSION: Postsurgical changes of right pneumonectomy without local recurrence or metastatic disease seen in the chest. Dictated by: Dictated on workstation # [id number]
== END ==
LOC: RAD 13:00
PROVIDERS: ATTEND Internal Medicine Critical Care Medicine
DX: D3A.00 Benign carcinoid tumor of unspecified site (principal); Z90.2 Acquired absence of lung [part of]; J44.9 Chronic obstructive pulmonary disease, unspecified
CPT/HCPCS: 71250

== ENCOUNTER 2023-01-07 11:31 | Outpatient (CLI) | payer MEDICARE ==
[~2023-01-07] VITALS: Ht 160 cm; Wt 86.8 kg
[2023-01-07] MEDS ORDERED: DENOSUMAB 60 MG/1 ML (PROLIA) SQ SCH (11:45)
[2023-01-07 12:25] VITALS: BP 122/63
== END 2023-01-07 12:25 | disposition home or self-care (01) ==
LOC: SDC 11:31
PROVIDERS: ATTEND Family Medicine
DX: M81.0 Age-related osteoporosis without current pathological fracture (principal)
CPT/HCPCS: 96372

== ENCOUNTER → 2023-01-07 | Outpatient (CLI) | payer MEDICARE ==
--- NOTE | 2023-01-07 16:42 | Diagnostic Imaging Report ---
RIBS, LEFT 2-3 VIEWS INDICATION: Left rib pain COMPARISON: None available. 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 No pleural effusion or pneumothorax. No acute or healing left-sided rib fracture. Dextrocurvature of the lumbar spine. IMPRESSION: No left-sided rib fracture. Dictated by: Dictated on workstation # [id number]
== END ==
LOC: SDC 11:39
PROVIDERS: ATTEND Nurse Practitioner Family
DX: R07.81 Pleurodynia (principal); Z91.81 History of falling
CPT/HCPCS: 71100

== ENCOUNTER 2023-01-29 14:38 | Outpatient (RCR) | payer MEDICARE | END 2023-02-02 | disposition home or self-care (01) | LOC: CR3 14:38 | PROVIDERS: ATTEND Family Medicine | DX: Z29.8 Encounter for other specified prophylactic measures (principal) ==

== ENCOUNTER 2023-02-10 16:02 | Outpatient (RCR) | payer MEDICARE | END 2023-04-04 | disposition home or self-care (01) | LOC: CR3 16:02 | PROVIDERS: ATTEND Family Medicine | DX: Z29.8 Encounter for other specified prophylactic measures (principal) ==